=== PATIENT | female | born 1945 | race Caucasian/White ===

== ENCOUNTER 2017-02-22 20:09 | Emergency (ER) | payer MEDICARE ==
--- OUTSIDE RECORDS SUMMARY | 2017-02-22 20:43 | XMS REPORT | Clinical Summary ---
:1945 Author Organization [facility] [place] [address] Care Team Providers Name Role Phone Unavailable Primary Care Provider Unavailable Source Comments This disclosure is being made pursuant to the Good Deal program and maynot contain all information available regarding this patient.[facility] Allergies Active Allergy Reactions Severity Noted Date Comments Clarithromycin Nausea And Vomiting Medium 05/07/2013 Hydrochlorothiazide Other (See Comments) 05/07/2013 Unknown Lisinopril Other (See Comments) 05/07/2013 Unknown Simvastatin Other (See Comments) 05/07/2013 Not sure Current Medications Be aware that medications may not be up to date as of this document. Alwaysverify current medications with the patient. Prescription Sig. Disp. Refills Start Date End Date Status vitamin D, Take 1,000 Active cholecalciferol, 1000 Units by UNITS tablet mouth daily. simvastatin (ZOCOR) Take 10 mg by 10/26/2016 Active 20 MG tablet mouth nightly. lisinopril Take 40 mg by Active (PRINIVIL,ZESTRIL) 40 mouth daily. MG tablet aspirin 81 MG EC Take 81 mg by Active tablet mouth daily. alendronate (FOSAMAX) Take 1 tablet 01/14/2017 Active 10 MG tablet by mouth daily. cyclobenzaprine Take 1 tablet 01/24/2017 Active (FLEXERIL) 10 MG by mouth tablet daily as needed. pantoprazole Take 40 mg by Active (PROTONIX) 40 MG mouth daily. tablet metoprolol succinate Take 1 tablet 0 05/24/2013 02/02/2017 Discontinued (TOPROL-XL) 25 MG 24 by mouth hr tablet nightly. alendronate (FOSAMAX) 03/10/2015 02/02/2017 Discontinued 70 MG tablet aspirin 325 MG tablet Take by 08/14/2012 02/02/2017 Discontinued mouth. potassium chloride SA Take 1 tablet 07/22/2014 02/02/2017 Discontinued (KLOR-CON M10) 10 MEQ by mouth 2 tablet (two) times daily. naproxen (NAPROSYN) Take 1 tablet 10/28/2016 02/02/2017 Discontinued 250 MG tablet by mouth every 6 (six) hours as needed. triamterene-hydrochlo Take 1 tablet 02/02/2017 Discontinued rothiazide by mouth (MAXZIDE-25) 37.5-25 daily. MG per tablet diazepam (VALIUM) 10 Take 1 tablet 1 tablet 0 12/09/2016 02/02/2017 Discontinued MG tablet oral 30 minutes to 1 hour before procedure. Active Problems Problem Noted Date Lumbar stenosis with neurogenic claudication 02/02/2017 Lumbar degenerative disc disease 12/22/2016 Encounters Date Type Specialty Care Team Description 02/04/2017 Orders Only Orthopedic Surgery Alejandra Frye Lumbar stenosis with MELODIE Oliveira neurogenic claudication (Primary Dx) 02/02/2017 Office Visit Orthopedic Surgery Paramjit, Lumbar stenosis with MD Andrew neurogenic claudication (Primary Dx) 12/30/2016 Orders Only Orthopedic Surgery Paramjit, Lumbar degenerative disc MD Andrew disease 12/22/2016 Office Visit Orthopedic Surgery Paramjit, Lumbar degenerative disc disease (Primary Dx); MD Andrew Lumbar stenosis with neurogenic claudication 12/22/2016 Orders Only Orthopedic Surgery Joycelyn Gonzalez Lumbar disc herniation (Primary Dx); MELODIE Oneill Lumbar stenosis 12/10/2016 Telephone Family Medicine Alejandra Frye Procedure MELODIE Oliveira 12/09/2016 Refill Orthopedic Surgery Alejandra Frye RN 12/08/2016 Office Visit Orthopedic Surgery Paramjit, Lumbar degenerative disc MD Andrew disease (Primary Dx) from Last 3 Months Immunizations Name Dates Previously Given Next Due Influenza Split 05/11/2013,03/25/2013 Pneumococcal Polysaccharide-23 03/07/2013 Tdap 03/07/2012 Zoster 2007 Family History Medical History Relation Name Comments Diabetes Mother Relation Name Status Comments Father Mother Sister Alive Sister Alive Social History Tobacco Use Types Packs/Day Years Used Date Never Smoker Smokeless Tobacco: Never Used Alcohol Use Drinks/Week oz/Week Comments Yes "Very seldom." Sex Assigned at Date Recorded Not on file Last Filed Vital Signs Vital Sign Reading Time Taken Blood Pressure 127/80 02/02/2017 10:42 AM CDT Pulse 102 02/02/2017 10:42 AM CDT Temperature 36.5 C (97.7 F) 02/02/2017 10:42 AM CDT Respiratory Rate 16 12/22/2016 9:39 AM CDT Oxygen Saturation 98% 02/02/2017 10:42 AM CDT Inhaled Oxygen Concentration - - Weight 55.7 kg (122 lb 12.8 oz) 12/22/2016 9:39 AM CDT Height 152.4 cm (5') 11/03/2016 10:51 AM CDT Body Mass Index 23.98 12/22/2016 9:39 AM CDT Plan of Treatment Health Maintenance Due Date Last Done Comments Hepatitis C Screening 1965 Colonoscopy 1997 Well Adult Visit 1997 Pneumococcal Low/Medium Risk 65+ (2 of 2 - 03/07/2014 03/07/2013 PCV13) Mammogram 06/10/2016 06/10/2014, 11/20/2012 INFLUENZA IMMUNIZATION (#1) 2017 05/11/2013, 03/25/2013 Tetanus/Pertussis (2 - Td) 03/07/2022 03/07/2012 Zoster Vaccine 60+ Completed 2007 Bone Density Completed 11/22/2014, 11/20/2012 Implants Implanted Type Area Armament Installer Device Expiration Date Model / Identifier Serial / Lot Long Nail Kit Nail Right: Hip 09/07/2014 [id number] / Implanted:Qty: 1 on 05/07/2013 by Leeroy Dickson MD / [id number] Scr Lag Ti Ster 10.5x95mm - [id number] Screw Right: Hip SARAVANAN 2016 [id number] / Implanted:Qty: 1 on 05/07/2013 by Leeroy Dickson MD / [id number] Locking Screw Fully Threaded Screw Right: Hip 07/25/2017 [id number] / Implanted:Qty: 1 on 05/07/2013 by Leeroy Dickson MD / [id number] Results MRI LUMBAR SPINE WO CONTRAST (12/16/2016) Specimen Performing Laboratory EXTERNAL NON UPH RAD - NO INTERFACE from Last 3 Months Insurance Payer Benefit Plan / Subscriber ID Type Phone Address Group [employer] [facility] [id number] Managed [address] [id number] [id number] [place] [address] Home: [id number] [id number] [address] LAURITA HERNANDEZ Personal/Family Self 1945 Home: [address] [facility] [id number] [id number] [facility] [employer] Other Home: [address] [address] Liability [id number] [place] [address]
--- OUTSIDE RECORDS SUMMARY | 2017-02-22 20:44 | XMS REPORT | Encounter Summary ---
:1945 Author Organization [facility] [employer] [place] [address] Care Team Providers Name Role Phone Unavailable Primary Care Provider Unavailable Reason for Referral Referral (Routine) Status Reason Specialty Diagnoses / Referred By Referred To Procedures Contact Contact Authorized Specialty Anesthesiology Diagnoses Lumbar stenosis with neurogenic claudication Paramjit, [facility] Services [facility] Required [address] [place] [phone] [place] [address] Phone: [phone] Phone: Encounter Details Date Type Department Care Team Description 02/04/2017 Orders Only [facility] Melva, Lumbar stenosis with [facility] Alejandra Oliveira RN neurogenic claudication [address] [place] [address] (Primary Dx) [address] [place] [address] [place] [address] [place] [address] Social History Tobacco Use Types Packs/Day Years Used Date Never Smoker Smokeless Tobacco: Never Used Alcohol Use Drinks/Week oz/Week Comments Yes "Very seldom." Sex Assigned at Date Recorded Not on file as of this encounter Plan of Treatment Name Priority Associated Diagnoses Order Schedule Amb Ref to Anesthesiology Routine Lumbar stenosis with Ordered: 02/04/2017 neurogenic claudication as of this encounter Visit Diagnoses Diagnosis Lumbar stenosis with neurogenic claudication - Primary Spinal stenosis, lumbar region, with neurogenic claudication in this encounter
--- OUTSIDE RECORDS SUMMARY | 2017-02-22 20:45 | XMS REPORT | Encounter Summary ---
:1945 Author Organization [employer] [place] [address] Care Team Providers Name Role Phone Unavailable Primary Care Provider Unavailable Reason for Visit Reason Comments Follow-up Encounter Details Date Type Department Care Team Description 02/02/2017 Office Visit [facility] Paramjit, Lumbar stenosis with [facility] MD Andrew neurogenic claudication [address] (Primary Dx) [address] [facility] 3 [place] [address] [place], [place] [phone] Social History Tobacco Use Types Packs/Day Years Used Date Never Smoker Smokeless Tobacco: Never Used Alcohol Use Drinks/Week oz/Week Comments Yes "Very seldom." Sex Assigned at Date Recorded Not on file as of this encounter Last Filed Vital Signs Vital Sign Reading Time Taken Blood Pressure 127/80 02/02/2017 10:42 AM CDT Pulse 102 02/02/2017 10:42 AM CDT Temperature 36.5 C (97.7 F) 02/02/2017 10:42 AM CDT Respiratory Rate - - Oxygen Saturation 98% 02/02/2017 10:42 AM CDT Inhaled Oxygen Concentration - - Weight - - Height - - Body Mass Index - - in this encounter Progress Notes Andrew Yusuf MD - 02/02/2017 10:29 AM CDTFormatting of this note may be different from the original. Subjective: Patient ID: Laurita Hernandez is a 71 y.o. female. Chief Complaint: HPI Comments: Ms. Hernandez presents to the clinic today for a follow-up from her Lumbar TATE. She reports that she experienced some relief the first 2 weeks after the procedure, but has since had some symptoms re-develop. She reports that she has beenexperiencing pain in both of her legs that starts in her BILATERAL hips and radiates down her entire leg. She reports that today she can tolerate thepain, but yesterday she had to lay in bed for the majority of the day due to the pain being so severe.She rates her pain level yesterday, Tuesday , 02/01/17, as 9/10, with 10 being the most severe. Social History Occupational History Not on file. Social History Main Topics Smoking status: Never Smoker Smokeless tobacco: Never Used Alcohol Use: Yes Comment: "Very seldom." Drug Use: No Sexual Activity: Not on file Review of Systems Constitutional: Negative. HENT: Negative. Eyes: Negative. Respiratory: Negative. Cardiovascular: Negative. Gastrointestinal: Negative. Endocrine: Negative. Genitourinary: Negative. Musculoskeletal: BILATERAL leg pain Skin: Negative. Allergic/Immunologic: Negative. Neurological: Negative. Hematological: Negative. Psychiatric/Behavioral: Negative. Objective: Back Exam Sensation: Normal. Gait: Normal. SLR Right: Negative Left: Negative Muscle Strength Normal back strength Tests Toe Walk: Normal Heel Walk: Normal Assessment: 1. Lumbar stenosis with neurogenic claudication Plan: LUMBAR TATE #2in this encounter Plan of Treatment Not on fileas of this encounter Visit Diagnoses Diagnosis Lumbar stenosis with neurogenic claudication - Primary Spinal stenosis, lumbar region, with neurogenic claudication in this encounter
--- OUTSIDE RECORDS SUMMARY | 2017-02-22 20:45 | XMS REPORT | Encounter Summary ---
:1945 Author Organization [employer] [place] [address] Care Team Providers Name Role Phone Unavailable Primary Care Provider Unavailable Reason for Referral MRI/CAT Scan (Routine) Status Reason Specialty Diagnoses / Procedures Referred By Referred To Contact Contact Authorized Other Diagnoses Lumbar degenerative disc disease Paramjit, Procedures MRI LUMBAR SPINE WO CONTRAST MD Andrew [address] [address] Encounter Details Date Type Department Care Team Description 12/30/2016 Orders Only [facility] Paramjit, Lumbar degenerative [facility] MD Andrew disc disease [address] [address] [place], [place] [phone] Social History Tobacco Use Types Packs/Day Years Used Date Never Smoker Smokeless Tobacco: Never Used Alcohol Use Drinks/Week oz/Week Comments Yes "Very seldom." Sex Assigned at Date Recorded Not on file as of this encounter Plan of Treatment Not on fileas of this encounter Results MRI LUMBAR SPINE WO CONTRAST (12/16/2016) Specimen Performing Laboratory EXTERNAL NON UPH RAD - NO INTERFACE in this encounter Visit Diagnoses Diagnosis Lumbar degenerative disc disease Degeneration of lumbar or lumbosacral intervertebral disc in this encounter
--- OUTSIDE RECORDS SUMMARY | 2017-02-22 20:45 | XMS REPORT | Encounter Summary ---
:1945 Author Organization [employer] [place] [address] Care Team Providers Name Role Phone Unavailable Primary Care Provider Unavailable Reason for Visit Reason Comments Procedure Encounter Details Date Type Department Care Team Description 12/10/2016 Telephone [facility] Alejandra Baires RN Procedure [facility] [address] [place] [address], [address] [facility] 3 [place] [address] [place], [place] [phone] Social History Tobacco Use Types Packs/Day Years Used Date Never Smoker Smokeless Tobacco: Never Used Alcohol Use Drinks/Week oz/Week Comments Yes "Very seldom." Sex Assigned at Date Recorded Not on file as of this encounter Plan of Treatment Not on fileas of this encounter Visit Diagnoses Not on filein this encounter
--- OUTSIDE RECORDS SUMMARY | 2017-02-22 20:45 | XMS REPORT | Encounter Summary ---
:1945 Author Organization [employer] [place] [address] Care Team Providers Name Role Phone Unavailable Primary Care Provider Unavailable Reason for Referral Surgical (Routine) Status Reason Specialty Diagnoses / Referred By Referred To Procedures Contact Contact Authorized Diagnoses Lumbar disc herniation Lumbar stenosis Paramjit, Procedures Lumbar epidural steroid injection MD Andrew [address] [address] Encounter Details Date Type Department Care Team Description 12/22/2016 Orders Only [facility] Joycelyn Gonzalez Lumbar disc herniation (Primary Dx); [facility] Mai, RN Lumbar stenosis [address] [address] [place] [address] Social History Tobacco Use Types Packs/Day Years Used Date Never Smoker Smokeless Tobacco: Never Used Alcohol Use Drinks/Week oz/Week Comments Yes "Very seldom." Sex Assigned at Date Recorded Not on file as of this encounter Plan of Treatment Name Priority Associated Diagnoses Order Schedule Lumbar epidural steroid Routine Lumbar disc herniation 1 Occurrences starting injection Lumbar stenosis 12/22/2016 until 12/22/2017 as of this encounter Visit Diagnoses Diagnosis Lumbar disc herniation - Primary Displacement of lumbar intervertebral disc without myelopathy Lumbar stenosis Spinal stenosis, lumbar region, without neurogenic claudication in this encounter
--- OUTSIDE RECORDS SUMMARY | 2017-02-22 20:45 | XMS REPORT | Encounter Summary ---
:1945 Author Organization [employer] [place] [address] Care Team Providers Name Role Phone Unavailable Primary Care Provider Unavailable Reason for Referral MRI/CAT Scan (Routine) Status Reason Specialty Diagnoses / Procedures Referred By Referred To Contact Contact Authorized Other Diagnoses Lumbar degenerative disc disease Paramjit, Procedures MRI LUMBAR SPINE WO CONTRAST MD Andrew [address] [address] Reason for Visit Reason Comments Follow-up Encounter Details Date Type Department Care Team Description 12/08/2016 Office Visit [facility] Paramjit, Lumbar degenerative [facility] MD Andrew disc disease (Primary 1603 [facility], [address]) [address] [address] [place], [place] [phone] Social History Tobacco Use Types Packs/Day Years Used Date Never Smoker Smokeless Tobacco: Never Used Alcohol Use Drinks/Week oz/Week Comments Yes "Very seldom." Sex Assigned at Date Recorded Not on file as of this encounter Last Filed Vital Signs Vital Sign Reading Time Taken Blood Pressure 112/74 12/08/2016 10:07 AM CDT Pulse 67 12/08/2016 10:07 AM CDT Temperature 36.5 C (97.7 F) 12/08/2016 10:07 AM CDT Respiratory Rate - - Oxygen Saturation 98% 12/08/2016 10:07 AM CDT Inhaled Oxygen Concentration - - Weight - - Height - - Body Mass Index - - in this encounter Progress Notes Andrew Yusuf MD - 12/08/2016 9:57 AM CDTFormatting of this note may be different from the original. Subjective: Patient ID: Laurita Hernandez is a 71 y.o. female. Chief Complaint: HPI Comments: Ms. Hernandez presents to the clinic today for a follow-up on her low back pain. She reports that the pain starts in her lower back and radiates into her BILATERAL thighs, knees, and lowerlegs. She reports that she went to in [facility] over the past month, but that it did nothing for her pain. She reports that she has been released from PT. She reports that she has been continuing HEP and using heat on her back. She reports that the pain radiating into her legs has woken her up at night. She rates her current pain level as 4/ 10, with 10 being the most severe. She reports thather pain can reach 10/10. She presents today using a cane. Social History Occupational History Not on file. Social History Main Topics Smoking status: Never Smoker Smokeless tobacco: Never Used Alcohol Use: Yes Comment: "Very seldom." Drug Use: No Sexual Activity: Not on file Review of Systems Constitutional: Negative. HENT: Negative. Eyes: Negative. Respiratory: Negative. Cardiovascular: Negative. Gastrointestinal: Negative. Endocrine: Negative. Genitourinary: Negative. Musculoskeletal: Low back pain radiating into BILATERAL legs Skin: Negative. Allergic/Immunologic: Negative. Neurological: Negative. Hematological: Negative. Psychiatric/Behavioral: Negative. Objective: Left Hip Exam Gait: n/t. Tenderness None Range of Motion Extension: Normal Flexion: Normal Internal Rotation: Normal External Rotation: Normal Abduction: Normal Adduction: N/t Muscle Strength Abduction: N/t Adduction: N/t Flexion: N/t Tests Frank: Negative Kyree: N/t Right Hip Exam Gait: n/t. Tenderness None Range of Motion Extension: Normal Flexion: Normal Internal Rotation: N/t External Rotation: n/t Abduction: Normal Adduction: N/t Muscle Strength Abduction: N/t Adduction: N/t Flexion: N/t Tests Frank: Negative Kyree: N/t Back Exam Sensation: Decreased. Gait: Normal. Tenderness None SLR Right: Positive Left: Positive Tests Toe Walk: Normal Heel Walk: Normal Reflexes Patellar: Normal Achilles: Normal Comments: SENSORY DIMINISHED R S1 Assessment: 1. Lumbar degenerative disc disease Plan: LUMBAR MRI in this encounter Plan of Treatment Not on fileas of this encounter Results MRI LUMBAR SPINE WO CONTRAST (12/16/2016) Specimen Performing Laboratory EXTERNAL NON UPH RAD - NO INTERFACE in this encounter Visit Diagnoses Diagnosis Lumbar degenerative disc disease - Primary Degeneration of lumbar or lumbosacral intervertebral disc in this encounter
--- OUTSIDE RECORDS SUMMARY | 2017-02-22 20:45 | XMS REPORT | Encounter Summary ---
:1945 Author Organization [facility] [place] [address] Care Team Providers Name Role Phone Unavailable Primary Care Provider Unavailable Reason for Visit Reason Comments Medication Refill Encounter Details Date Type Department Care Team Description 12/09/2016 Refill [facility] Alejandra Baires, RN Orthopedics [address] [place] [address], [address] [address] [place], [place] [phone] Social History Tobacco Use Types Packs/Day Years Used Date Never Smoker Smokeless Tobacco: Never Used Alcohol Use Drinks/Week oz/Week Comments Yes "Very seldom." Sex Assigned at Date Recorded Not on file as of this encounter Plan of Treatment Not on fileas of this encounter Visit Diagnoses Not on filein this encounter
--- OUTSIDE RECORDS SUMMARY | 2017-02-22 20:45 | XMS REPORT | Encounter Summary ---
:1945 Author Organization [employer] [place] [address] Care Team Providers Name Role Phone Unavailable Primary Care Provider Unavailable Reason for Referral Referral (Routine) Status Reason Specialty Diagnoses / Referred By Referred To Procedures Contact Contact Authorization Not Specialty Physical Diagnoses Lumbar degenerative disc disease CURT Yusuf Needed Services Therapy EMMY Morales MD [address] [address] [facility] [address] [place] [address] Phone: Fax: Reason for Visit Reason Comments Hip Pain RIGHT Back Pain Referral (Routine) Status Reason Specialty Diagnoses / Referred By Referred To Procedures Contact Contact Authorized Specialty Orthopedic Diagnoses Right thigh pain DDD (degenerative disc disease), lumbar Dar Nelson, Paramjit, Services Surgery MD Morales, [place] [address] [address] CURTIS [address] [address] [address] Phone: [place], [place] [phone] Fax: Encounter Details Date Type Department Care Team Description 11/03/2016 Office Visit [facility] Paramjit Lumbar degenerative [facility] MD Andrew disc disease (Primary [address] [facility], [address] [place] [address]) [address] [place] [address] [place], [place] [phone] Social History Tobacco Use Types Packs/Day Years Used Date Never Smoker Smokeless Tobacco: Never Used Alcohol Use Drinks/Week oz/Week Comments Yes "Very seldom." Sex Assigned at Date Recorded Not on file as of this encounter Last Filed Vital Signs Vital Sign Reading Time Taken Blood Pressure 118/75 11/03/2016 10:51 AM CDT Pulse 101 11/03/2016 10:51 AM CDT Temperature 36.2 C (97.2 F) 11/03/2016 10:51 AM CDT Respiratory Rate - - Oxygen Saturation 96% 11/03/2016 10:51 AM CDT Inhaled Oxygen Concentration - - Weight 55.7 kg (122 lb 12.8 oz) 11/03/2016 10:51 AM CDT Height 152.4 cm (5') 11/03/2016 10:51 AM CDT Body Mass Index 23.98 11/03/2016 10:51 AM CDT in this encounter Progress Notes Andrew Yusuf MD - 11/03/2016 10:51 AM CDTFormatting of this note may be different from the original. Subjective: Patient ID: Laurita Hernandez is a 71 y.o. female. HPI Comments: Patient presents to the clinic today due to RIGHT hip and leg pain. She reports that the pain radiates from her RIGHT lower back and radiates into her RIGHT lower extremity. She reportsthat the pain primarily occurs when she gets up from sitting down. She presents today using a cane. She reports that she fractured her RIGHT femur in 04/2013 and had surgery to repair it. She reportsthat her RIGHT hip and leg pain started within the past month, and that she has x-rays of her femur todetermine whether or not it was due to her surgical procedure. She reports that she was told thatthe hardware in her leg was fine, but that the pain may be originating from her lower back . She reports that she was told that she had bulging discs approximately 20 years ago. She reports that shereceived a cortisone injection in her RIGHT hip around 04/2015, which "didn't last over a month." Patient's problem list, medications, allergies, past medical, surgical, social and family histories were reviewed and updated as appropriate. Review of Systems Constitutional: Negative. HENT: Negative. Eyes: Negative. Respiratory: Negative. Cardiovascular: Negative. Gastrointestinal: Negative. Endocrine: Negative. Genitourinary: Negative. Musculoskeletal: RIGHT hip and leg pain radiating from the lower back, numbness and tingling in the toes Skin: Negative. Allergic/Immunologic: Negative. Neurological: Negative. Hematological: Negative. Psychiatric/Behavioral: Negative. Objective: BP 118/75 mmHg | Pulse 101 | Temp(Src) 36.2 C (97.2 F) (Tympanic) | Ht 1.524 m (5') | Wt 55.702 kg (122 lb 12.8 oz) | BMI 23.98 kg/m2 | SpO2 96% Body mass index is 23.98 kg/(m^2). Physical Exam Lumbar exam reveals negative straight leg raise, symmetrical knee and ankle reflexes. Normal peripheral sensory exam. Right hip has pain-free range of motion. She does have a positive Kyree and positive femoral stretch on the right. x-rays: Right hip to knee including femur: There is a long intramedullary nail with proximal and distal locking screws with a medial proximal third right femur fracture. There is a right total kneereplacement without complication. X-ray: Lumbar: March degenerative changes throughout the upper and mid lumbar spine including disc space narrowing bridging syndesmophytes L2-3-4. Multiple endplate sclerosis. Assessment/Orders: Diagnoses and all orders for this visit: Lumbar degenerative disc disease - Amb Ref to Physical Therapy Plan: PT in this encounter Plan of Treatment Name Priority Associated Diagnoses Order Schedule Amb Ref to Physical Routine Lumbar degenerative disc Ordered: 11/03/2016 Therapy disease as of this encounter Visit Diagnoses Diagnosis Lumbar degenerative disc disease - Primary Degeneration of lumbar or lumbosacral intervertebral disc in this encounter
--- OUTSIDE RECORDS SUMMARY | 2017-02-22 20:45 | XMS REPORT | Encounter Summary ---
:1945 Author Organization [employer] Address [place] [address] Care Team Providers Name Role Phone Unavailable Primary Care Provider Unavailable Reason for Visit Reason Comments Follow-up to review Lumbar MRI for back pain Encounter Details Date Type Department Care Team Description 12/22/2016 Office Visit [facility] Paramjit Lumbar degenerative disc disease (Primary Dx); [facility] MD Andrew Lumbar stenosis with neurogenic claudication [address] [facility] 3 [place] [address] [place], [place] [phone] Social History Tobacco Use Types Packs/Day Years Used Date Never Smoker Smokeless Tobacco: Never Used Alcohol Use Drinks/Week oz/Week Comments Yes "Very seldom." Sex Assigned at Date Recorded Not on file as of this encounter Last Filed Vital Signs Vital Sign Reading Time Taken Blood Pressure 129/81 12/22/2016 9:39 AM CDT Pulse 61 12/22/2016 9:39 AM CDT Temperature 36.9 C (98.4 F) 12/22/2016 9:39 AM CDT Respiratory Rate 16 12/22/2016 9:39 AM CDT Oxygen Saturation 100% 12/22/2016 9:39 AM CDT Inhaled Oxygen Concentration - - Weight 55.7 kg (122 lb 12.8 oz) 12/22/2016 9:39 AM CDT Height - - Body Mass Index 23.98 12/22/2016 9:39 AM CDT in this encounter Progress Notes Andrew Yusuf MD - 12/22/2016 9:29 AM CDTFormatting of this note may be different from the original. Subjective: Patient ID: Laurita Hernandez is a 71 y.o. female. Chief Complaint: HPI Follow up to review Lumbar MRI results. Patient has had a lumbar MRI done on and states that she is having a lot of pain in the lower back into the LEFT hip and down the back of the LEFT knee, she states that she is having RIGHT knee pain.Patient is rating pain a 7 on pain scale 0-10. KB HAS [facility] AND PT (D/C'D) half way thru due to failure to improve. 1 BLOCK WALKING TOLERANCE W/ CANE. FAILED NAPROSYN ULTRAM Social History Occupational History Not on file. Social History Main Topics Smoking status: Never Smoker Smokeless tobacco: Never Used Alcohol Use: Yes Comment: "Very seldom." Drug Use: No Sexual Activity: Not on file Review of Systems Constitutional: Negative. Respiratory: Negative. Cardiovascular: Negative. Musculoskeletal: Positive for back pain (;umbar pain) and arthralgias. Psychiatric/Behavioral: Negative. Objective: Back Exam Sensation: Normal. Gait: Antalgic. Tenderness None Range of Motion Flexion: Abnormal Extension: Abnormal Lateral Bend Left: Lateral Bend Right: Rotation Right: Rotation Left: SLR Right: Positive Left: Positive Muscle Strength Normal back strength Tests Toe Walk: Normal Heel Walk: Normal Reflexes Patellar: Hyporeflexic Achilles: Hyporeflexic Lumbar MRI: Multiple level degenerative disc disease most pronounced at L3-4 with right sided disc protrusion Assessment: 1. Lumbar degenerative disc disease 2. Lumbar stenosis with neurogenic claudication Plan: rec tulio lumbar in this encounter Plan of Treatment Not on fileas of this encounter Visit Diagnoses Diagnosis Lumbar degenerative disc disease - Primary Degeneration of lumbar or lumbosacral intervertebral disc Lumbar stenosis with neurogenic claudication Spinal stenosis, lumbar region, with neurogenic claudication in this encounter
--- OUTSIDE RECORDS SUMMARY | 2017-02-22 20:46 | XMS REPORT | Encounter Summary ---
:1945 Author Organization [employer] [place] [address] Care Team Providers Name Role Phone Unavailable Primary Care Provider Unavailable Reason for Referral Referral (Routine) Status Reason Specialty Diagnoses / Referred By Referred To Procedures Contact Contact Authorized Specialty Orthopedic Diagnoses Right thigh pain DDD (degenerative disc disease), lumbar Dar Nelson, Paramjit, Services Surgery MD Morales, [facility] [address] [facility] 160[address] [facility] [address] [address] Phone: [place], [place] [phone] Fax: Encounter Details Date Type Department Care Team Description 11/02/2016 Orders Only [facility] Mattie Zepeda, Right thigh pain (Primary Dx); [facility] RN DDD (degenerative disc disease), lumbar [address] [place] [address] [place] [address] [phone] Social History Tobacco Use Types Packs/Day Years Used Date Never Smoker Smokeless Tobacco: Never Used Alcohol Use Drinks/Week oz/Week Comments Yes 2 Glasses of wine 1.2 Sex Assigned at Date Recorded Not on file as of this encounter Plan of Treatment Name Priority Associated Diagnoses Order Schedule Amb Ref to Orthopedic Routine Right thigh pain Ordered: 11/05/2016 Surgery DDD (degenerative disc disease), lumbar as of this encounter Visit Diagnoses Diagnosis Right thigh pain - Primary Pain in limb DDD (degenerative disc disease), lumbar Degeneration of lumbar or lumbosacral intervertebral disc in this encounter
--- OUTSIDE RECORDS SUMMARY | 2017-02-22 20:46 | XMS REPORT | Encounter Summary ---
:1945 Author Organization [employer] [place] [address] Care Team Providers Name Role Phone Unavailable Primary Care Provider Unavailable Encounter Details Date Type Department Care Team Description 11/02/2016 Abstract [facility] Alejandra Baires, geophysical prospecting surveyor[address], [address] [facility] 3 [place] [address] [place] [address] [phone] Social History Tobacco Use Types Packs/Day Years Used Date Never Smoker Smokeless Tobacco: Never Used Alcohol Use Drinks/Week oz/Week Comments Yes 2 Glasses of wine 1.2 Sex Assigned at Date Recorded Not on file as of this encounter Plan of Treatment Not on fileas of this encounter Visit Diagnoses Not on filein this encounter
[2017-02-22] MEDS ORDERED: NORMAL SALINE 1,000 ML IV ONE (20:48)
--- NOTE | 2017-02-22 20:53 | ERNOTE ---
Head Injury HPI - General Injury to: other Time Seen by Provider: 02/22/17 20:37 Source: patient, family Exam Limitations: clinical condition - Immun/Allergies/Home Medications Immunization: IMMUNIZATION HX Immunizations Up to Date Yes History of Influenza Vaccine No Hx Pneumococcal Vaccination No Allergies/Adverse Reactions: Allergies Allergy/AdvReac Type Severity Reaction Status Date / Time No Known Allergies Allergy Verified 02/22/17 20:24 Home Medications: HOME MEDICATIONS Alendronate Sodium 11/12/16 [Last Taken Unknown] Aspirin 11/12/16 [Last Taken Unknown] Metoprolol ER-Hctz 100-12.5 mg 11/12/16 [Last Taken Unknown] Pantoprazole Sodium 11/12/16 [Last Taken Unknown] Simvastatin 11/12/16 [Last Taken Unknown] Vitamin D 11/12/16 [Last Taken Unknown] Lisinopril 02/22/17 [Last Taken Unknown] Orphenadrine Citrate [Norflex] 100 mg PO Q12H #20 tablet.sa 02/23/17 [Last Taken Unknown] - History of Present Illness Narrative: Pt has been sick for a few days. Yesterday her neck began to get stiff and she is unable to move it this evening. Occurred: other Severity: moderate, severe Associated Symptoms: Reports: cough, fever/chills, headaches Review of Systems - Review of Systems Constitutional: Present: recent illness, fatigue, malaise EYE: Present: no symptoms reported ENT: Absent: ear pain, nose congestion Respiratory: Present: cough Cardiology: Absent: chest pain Gastrointestinal/Abdominal: Present: eating less, drinking less Genitourinary: Present: no symptoms reported Musculoskeletal: Absent: back pain Skin: Absent: rash Neurological: Present: headache Endocrine: Present: no symptoms reported Hematologic/Lymphatic: Present: no symptoms reported Psych: Present: no symptoms reported - Patient's Past Medical History Patient History - Medical: Osteoporosis Patient History - Cardiac/Respiratory: Hypertension, Hyperlipidemia Patient History - Cancer: No Hx of Cancer Patient History - Surgical Procedures: Total Knee Replacement, Other Patient History - Other: None - Social History Living Situations: home Psych History: No pertinent hx Smoking Status: Never smoker - Immunizations Immunizations Up to Date: Yes Hx Pneumococcal Vaccination: No History of Influenza Vaccine: No Physical Exam - Physical Exam General Appearance: Present: wd/wn, mild distress, moderate distress, lethargic Head Exam: Present: no evidence of injury, no tenderness w palpation Eye Exam: Normal inspection: bilateral, PERRL: bilateral Ears, Nose, Throat: Present: normal ENT inspection, normal pharynx Neck: Present: other - nuchal rigidity/ tenderness with any movement Respiratory: Present: no respiratory distress, normal breath sounds, no accessory muscle use, lungs clear Cardiovascular/Chest: Present: regular rate, rhythm, no murmur, normal peripheral pulses Gastrointestinal/Abdominal: Present: normal bowel sounds, nontender, nondistended, soft Back Exam: Present: no vertebral tenderness Extremity Exam: Present: normal inspection, normal range of motion, no edema Neurological Exam: Present: alert, oriented, no motor/sensory deficits Skin Exam: Present: normal color, warm/dry Lymphatic Exam: Present: no adenopathy ED Progress - Results and Orders Patient's Lab Results:: I have reviewed the patient's lab results. Results and Orders: Laboratory Tests 02/22/17 02/22/17 02/22/17 20:48 21:06 21:06 WBC 20.1 H Hgb 14.1 Hct 40.9 Neutrophils % 86.8 H Sodium 140 Potassium 3.8 Chloride 102 Carbon Dioxide 29.6 BUN 10 Creatinine 0.78 Random Glucose 162 H Lactic Acid, Venous 1.8 Calcium 8.4 Total Bilirubin 0.8 AST 25 ALT 16 L Alkaline Phosphatase 90 Total Protein 7.7 Albumin 3.3 L Procalcitonin 02/22/17 21:06 WBC Hgb Hct Neutrophils % Sodium Potassium Chloride Carbon Dioxide BUN Creatinine Random Glucose Lactic Acid, Venous Calcium Total Bilirubin AST ALT Alkaline Phosphatase Total Protein Albumin Procalcitonin Less than 0.05 L Laboratory Tests 02/22/17 02/22/17 23:00 23:00 CSF Appearance Clear CSF Color Colorless CSF WBC 0 CSF RBC 1 CSF Lymphocytes 0 CSF Glucose 78 H CSF Total Protein 78.8 H - Vital Signs Patient's Vital Signs:: I have reviewed the patient's vital signs. Vital Signs: Vital Signs 02/22/17 20:19 Temperature 36.9 C Pulse Rate 118 H Respiratory 17 Rate Blood Pressure 127/85 O2 Sat by Pulse 98 Oximetry - X-Ray X-Ray #1 X-Ray: chest Interpretation: Interp. by me X-ray Comments: No infiltrate or effusion, heart size normal. Osseous structures intact - CT/Ultrasound CT/Ultrasound Narrative: CT: head Findings: There is scattered periventricular and subcortical white matter hypodensities consistent with chronic microvascular ischemic white matter disease. There is diffuse brain atrophy with associated increasing size of the CSF containing spaces. There is no acute loss of babcock-white differentiation appreciated. There is no mass effect or midline shift. No intra-axial or extra axial blood products identified. The visualized paranasal sinuses and mastoid air cells are clear. The skull base and calvarium are intact. IMPRESSION: NO ACUTE INTRACRANIAL ABNORMALITY IDENTIFIED. Electronically signed by Ugo Nguyen D.O.. - Progress/Reassessment Chief Complaint: Neck Pain/Injury Progress Note-Subjective: 02/22/17 22:12 Anesthesia called to do LP. Pt complains of pain. given zofran 4mg and morphine 2 mg IV. Departure Clinical Impression: Muscle spasms of neck - Departure Disposition: Home Follow Up Needed Condition: Good Instructions: Muscle Cramps and Spasms, [id number] Additional Instructions: See your regular doctor if not improving in 1-2 days. Stop the cyclobenzaprine and take the new prescription Referrals: Yvonne Ballard, DO [Primary Care Provider] - Prescriptions: Orphenadrine Citrate [Norflex] 100 mg PO Q12H #20 tablet.sa
[2017-02-22 21:05] LABS: Hematocrit 40.9 % (37.0-47.0); Hemoglobin 14.1 gm/dL (12.5-16.0); Mean Cell Volume 89.9 fl (78-100); Mean Corpuscular Hgb Conc 34.5 g/dl (32-36); Mean Platelet Volume 10.2 fl (6.0-9.5); Neutrophil # 17.4 K/mm3 (1.3-6.0); Neutrophil % 86.8 % (42-75.0); Platelet Count 254 K/mm3 (150-450); Red Blood Count 4.55 M/mm3 (4.2-5.4); Red Cell Distribution Width 13.8 % (11.5-14.0); White Blood Count 20.1 K/mm3 (4.0-10.5)
[2017-02-22 21:31] LABS: Albumin * 3.3 gm/dl (3.4-5.0); Anion Gap 12.2 mmol/L (6.8-13.8); BUN/Creatinine Ratio 12.8 (9.0-21.6); Bilirubin, Total 0.8 mg/dL (0.0-1.1); Ca. Corrected For Albumin 8.6 mg/dL (8.4-10.2); Calcium * 8.4 mg/dL (7.9-10.9); Carbon Dioxide 29.6 mmol/L (24-32.6); Potassium 3.8 mmol/L (3.4-4.6); Total Protein 7.7 gm/dL (6.2-8.2)
[2017-02-22 21:45] LABS: Urine Bilirubin 1 mg/dl (NEGATIVE); Urine Blood 250 /ul (NEGATIVE); Urine Ketone 50 mg/dL (NEGATIVE); Urine Nitrite Negative (NEGATIVE); Urine Protein 30 mg/dL (NEGATIVE); Urine Specific Gravity 1.025 SP.GR. (1.005-1.010); Urine pH 6.5 pH (5.0-7.0)
[2017-02-22 21:56] LABS: Urine Appearance Clear; Urine Color Yellow; Urine WBC None Seen /hpf (0-5)
[2017-02-22 21:57] LABS: Urine Bacteria 1+; Urine Mucus Moderate - 2+
[2017-02-22] MEDS ORDERED: ONDANSETRON HCL/PF 2 MG/ML VIAL IV ONE (22:11)
[2017-02-22] MEDS ORDERED: ONDANSETRON HCL/PF 2 MG/ML VIAL ONE (22:12)
[2017-02-22] MEDS ORDERED: MORPHINE SULFATE 2 MG/ML DISP.SYRIN IV ONE (22:12)
[2017-02-22] MEDS ORDERED: MORPHINE SULFATE 2 MG/ML DISP.SYRIN ONE (22:12)
--- NOTE | 2017-02-22 23:04 | OR ---
Anesthesia Procedure Note - Anesthesia Procedure Note Date of Service: 02/22/17 Narrative: Vital Signs - Last Taken Temp 38.2 C H 02/22/17 22:19 Pulse 103 H 02/22/17 22:19 Resp 18 02/22/17 22:19 BP 163/95 02/22/17 22:19 Pulse Ox 100 02/22/17 22:19 O2 Oxygen Delivery Method Room Air 02/22/17 23:02 ANESTHESIA PROCEDURE NOTE Date of Procedure: 02/22/2017. Time of procedure: 2244. Performed by: Geovanni Mcclellan CRNA Loss Prevention Officer: None. Preprocedure diagnosis: Headache, neck pain. Post procedure diagnosis: Same. Procedure: Lumbar Puncture. Indications: This 72-year-old female who is been experiencing headache neck pain and fever. Findings: Opening pressure = 16 mmHg Clossing pressure = 15.5 mmHg. Details of the procedure: After informed consent was obtained the patient was placed in the left lateral decubitus position. Betadine swabs 3 was applied to the patients back. The patient was then draped in a sterile fasion. Lidocaine 1% was infiltrated to the skin and subcutaneous tissues at the intended target site. The subarachnoid space was identified at the level of the L5-S1 interspace using a 22-gauge quickie spinal needle. Free flow of CSF was noted. Pressure measurements were obtained.. Four specimens were drawn and sent to lab. The spinal needle was removed intact. A Band-Aid was applied to the patient's back. EBL: Minimal. Fluids: N/A. Specimen: N/A. Post procedure condition: The patient tolerated the procedure well. No complications were noted. Thank you for this consultation. Geovanni Mcclellan CRNA
[2017-02-22 23:59] LABS: CSF Appearance Clear (CLEAR); CSF Color Colorless (COLORLESS)
[2017-02-23 00:07] LABS: CSF WBC 0 /uL (0-10)
[2017-02-23 00:09] LABS: CSF RBC 1 /uL (0-10)
[2017-02-23 00:15] LABS: CSF Lymphocytes 0 % (0-100)
[2017-02-23] MEDS ORDERED: ORPHENADRINE CITRATE 30 MG/ML VIAL IV ONE (00:33)
[2017-02-23] MEDS ORDERED: ORPHENADRINE CITRATE 30 MG/ML VIAL ONE (00:34)
[2017-02-23 01:00] VITALS: BP 142/86
== END 2017-02-23 00:59 | disposition home or self-care (01) ==
LOC: ER 20:09
PROC: 009U3ZZ Drainage of Spinal Canal, Percutaneous Approach (ICD-10-PCS; principal; 2017-02-22)
DX: M62.838 Other muscle spasm (principal)
CPT/HCPCS: 36415; 62270; 70450; 71020; 80053; 81001; 82945; 83605; 84145; 84157; 85025; 87070; 87205; 89051; 94762; 96374; 96375; 99284; J2405

== ENCOUNTER 2017-02-23 11:35 | Inpatient (IN) | payer MEDICARE ==
[2017-02-23] MEDS ORDERED: MORPHINE SULFATE 2 MG/ML DISP.SYRIN IV ONE (12:05)
[2017-02-23] MEDS ORDERED: NORMAL SALINE 1,000 ML IV ONE (12:05)
[2017-02-23] MEDS ORDERED: MORPHINE SULFATE 2 MG/ML DISP.SYRIN ONE (12:12)
--- NOTE | 2017-02-23 12:12 | ERNOTE ---
Medical Problem HPI - General Chief Complaint: Upper Extremity Injury/Problem Time Seen by Provider: 02/23/17 11:56 Source: patient, family Exam Limitations: no limitations - Immun/Allergies/Home Medications Immunizations: IMMUNIZATION HX Immunizations Up to Date Yes History of Influenza Vaccine Yes Hx Pneumococcal Vaccination Yes Allergies/Adverse Reactions: Allergies No Known Allergies Allergy (Verified 02/23/17 11:50) Home Medications: HOME MEDICATIONS Alendronate Sodium 11/12/16 [Last Taken Unknown] Aspirin 11/12/16 [Last Taken Unknown] Metoprolol ER-Hctz 100-12.5 mg 11/12/16 [Last Taken Unknown] Pantoprazole Sodium 11/12/16 [Last Taken Unknown] Simvastatin 11/12/16 [Last Taken Unknown] Vitamin D 11/12/16 [Last Taken Unknown] Lisinopril 02/22/17 [Last Taken Unknown] Orphenadrine Citrate [Norflex] 100 mg PO Q12H #20 tablet.sa 02/23/17 [Last Taken Unknown] - History of Present History Narrative: Patient started with neck pain three days ago. she vomited only once but has had very little food or fluid intake since.She also noticed pain in the right wrist, denies any injury or any other joint issues. She was seen in the ER last night, had head CT and lumbar puncture, WBC were elevated, but LA and procalcitonin and CSF studies wnl. She followed up with her PCP today and was send back to the ER for concerns about her right wrist Review of Systems - Review of Systems Constitutional: Present: recent illness, chills. Absent: fever ENT: Absent: nose congestion, sore throat Respiratory: Present: shortness of breath. Absent: cough Cardiology: Absent: chest pain Gastrointestinal/Abdominal: Present: See HPI. Absent: vomiting, diarrhea, abdominal pain Genitourinary: Present: no symptoms reported Musculoskeletal: Present: See HPI, neck pain - with movement only, joint pain - Patient's Past Medical History Patient History - Medical: Osteoporosis Patient History - Cardiac/Respiratory: Hypertension, Hyperlipidemia Patient History - Cancer: No Hx of Cancer Patient History - Surgical Procedures: Total Knee Replacement, Other Patient History - Other: None LMP (females 10-50): Menopausal - Social History Living Situations: home Abuse History: No History of abuse Psych History: No pertinent hx Smoking Status: Never smoker Alcohol Use: occasionally Drug Use: none - Immunizations Immunizations Up to Date: Yes Hx Pneumococcal Vaccination: Yes History of Influenza Vaccine: Yes Physical Exam - Physical Exam General Appearance: Present: wd/wn, alert, no apparent distress Head Exam: Present: normal inspection Ears, Nose, Throat: Present: dry mucous membranes Neck: Present: tender lateral, tender posterior midline, other - no pain at rest but with ROM Respiratory: Present: no respiratory distress, normal breath sounds, no accessory muscle use, lungs clear Cardiovascular/Chest: Present: regular rate, rhythm, no murmur Gastrointestinal/Abdominal: Present: normal bowel sounds, nontender, nondistended, soft Extremity Exam: Present: normal except - - right wrist area of redness and swelling from dorsum of hand extending to forearm, smaller area over palmar surface of wrist, small scab (bite) on dorsum of hand (marked with marker) Neurological Exam: Present: alert, oriented, normal mood/affect, no motor/ sensory deficits Skin Exam: Present: normal color, warm/dry, other - no lymphangitis ED Progress - Results and Orders Patient's Lab Results:: I have reviewed the patient's lab results. Results and Orders: reviewed labs from last visit, WBC improved, LA and procalcitonin do not support systemic infection - Vital Signs Patient's Vital Signs:: I have reviewed the patient's vital signs. Vital Signs: Vital Signs 02/23/17 11:44 Temperature 37.6 C H Pulse Rate 113 H Respiratory 16 Rate Blood Pressure 145/85 O2 Sat by Pulse 94 Oximetry - EKG EKG: NSR - sinustachycardia EKG read: Interp. by me - X-Ray X-Ray #1 X-Ray: wrist - arthritis, no acute bony changes Interpretation: Reviewed by me - CT/Ultrasound CT/Ultrasound Narrative: CT C-spine: severe DDD - Progress/Reassessment Chief Complaint: Upper Extremity Injury/Problem Progress Note-Subjective: 02/23/17 13:38 discussed results with patient and , no sepsis, but cellulitis of right wrist 02/23/17 14:07 discussed with trimming caser, patient meets in patient criteria for obs admission patient and very relieved that she gets admitted 02/23/17 14:[address] Winn, okay to admit for cellulitis Departure - Departure Clinical Impression: SIRS (systemic inflammatory response syndrome) Cellulitis Qualifiers: Site of cellulitis: extremity Site of cellulitis of extremity: upper extremity Laterality: left Qualified Code(s): L03.114 - Cellulitis of left upper limb Disposition: [facility] Condition: Stable
--- OUTSIDE RECORDS SUMMARY | 2017-02-23 12:17 | XMS REPORT | Encounter Summary ---
:1945 Author Organization [employer] [place] [address] Care Team Providers Name Role Phone Unavailable Primary Care Provider Unavailable Reason for Referral Referral (Routine) Status Reason Specialty Diagnoses / Referred By Referred To Procedures Contact Contact Authorized Specialty Anesthesiology Diagnoses Lumbar stenosis with neurogenic claudication Paramjit, CURT DEPORT Services [facility] Required [id number] [place] [address] Phone: [phone] Phone: Encounter Details Date Type Department Care Team Description 02/04/2017 Orders Only [facility] Melva, Lumbar stenosis with [facility] Alejandra Oliveira RN neurogenic claudication [address] [place] [address] (Primary Dx) [address] [place] [address] [place] [address] Social History Tobacco Use Types [...]
--- OUTSIDE RECORDS SUMMARY | 2017-02-23 12:17 | XMS REPORT | Encounter Summary ---
:1945 Author Organization [employer] [place] [address] Care Team Providers Name Role Phone Unavailable Primary Care Provider Unavailable Reason for Visit Reason Comments Follow-up Encounter Details Date Type Department Care Team Description 02/02/2017 Office Visit [facility] Paramjit, Lumbar stenosis with [facility] MD Andrew neurogenic claudication [address] (Primary Dx) [address] [facility] [place] [address] [place] [phone] Social History Tobacco Use Types Packs/Day [...]
--- OUTSIDE RECORDS SUMMARY | 2017-02-23 12:17 | XMS REPORT | Encounter Summary ---
:1945 Author Organization [employer] [place] [address] Care Team Providers Name Role Phone Unavailable Primary Care Provider Unavailable Reason for Referral MRI/CAT Scan (Routine) Status Reason Specialty Diagnoses / Procedures Referred By Referred To Contact Contact Authorized Other Diagnoses Lumbar degenerative disc disease Paramjit, Procedures MRI LUMBAR SPINE WO CONTRAST MD Andrew [address] [address] Encounter Details Date Type Department Care Team Description 12/30/2016 Orders Only [facility] Paramjit, Lumbar degenerative [facility] MD Andrew disc disease [address] [address] [place], [place] [phone] Social History Tobacco Use Types Packs/Day [...]
--- OUTSIDE RECORDS SUMMARY | 2017-02-23 12:17 | XMS REPORT | Encounter Summary ---
:1945 Author Organization [employer] [place] [address] Care Team Providers Name Role Phone Unavailable Primary Care Provider Unavailable Reason for Referral Surgical (Routine) Status Reason Specialty Diagnoses / Referred By Referred To Procedures Contact Contact Authorized Diagnoses Lumbar disc herniation Lumbar stenosis Paramjit, Procedures Lumbar epidural steroid injection MD Andrew [address] [address] Encounter Details Date Type Department Care Team Description 12/22/2016 Orders Only [facility] Joycelyn Gonzalez Lumbar disc herniation (Primary Dx); [facility] Mai, RN Lumbar stenosis [address] [address] [place] [address] Social History Tobacco Use Types [...]
--- OUTSIDE RECORDS SUMMARY | 2017-02-23 12:17 | XMS REPORT | Clinical Summary ---
:1945 Author Organization [employer] [place] [address] Care Team Providers Name Role Phone Unavailable Primary Care Provider Unavailable Source Comments This disclosure is being made pursuant to the [employer] program and maynot contain all information available regarding this patient.[employer] Allergies Active Allergy Reactions Severity Noted Date [...] Andrew disease 12/22/2016 Office Visit Orthopedic Surgery Parajmit, Lumbar degenerative disc disease (Primary Dx); MD [...] Completed 11/22/2014, 11/20/2012 Implants Implanted Type Area Vault Worker Device Expiration Date Model / Identifier Serial / Lot Long Nail Kit Nail Right: Hip 09/07/2014 3430-360S / Implanted:Qty: 1 on 05/07/2013 by Leeroy Dickson MD / [id number] Scr Lag Ti Ster 10.5x95mm - [id number] Screw Right: Hip SARAVANAN 2016 [id number] / Implanted:Qty: 1 on 05/07/2013 by Leeroy Dickson MD / [id number] Locking Screw Fully Threaded Screw Right: Hip 07/25/2017 [id number] / Implanted:Qty: 1 on 05/07/2013 by Leeroy Dickson MD / [id number] Results MRI LUMBAR SPINE WO CONTRAST (12/16/2016) Specimen Performing Laboratory EXTERNAL NON UPH RAD - NO INTERFACE from Last 3 Months Insurance Payer Benefit Plan / Subscriber ID Type Phone Address Group HUMANA CHOICE HU[employer] CHOICE [facility] [id number] Managed [address] [phone] [id number] [place] [address] Home: [address] [phone] [address] LAURITA HERNANDEZ Personal/Family Self 1945 Home: [address] [phone] [id number] [facility] [employer] Party Other Home: [address] [address] Liability [phone] [place]ad Reyn[place]1 [place] [phone]
--- OUTSIDE RECORDS SUMMARY | 2017-02-23 12:19 | XMS REPORT | Encounter Summary ---
:1945 Author Organization [employer] [place] [address] Care Team Providers Name Role Phone Unavailable Primary Care Provider Unavailable Reason for Visit Reason Comments Follow-up to review Lumbar MRI for back pain Encounter Details Date Type Department Care Team Description 12/22/2016 Office Visit [facility] Paramjit Lumbar degenerative disc disease (Primary Dx); [facility] MD Andrew Lumbar stenosis with neurogenic claudication [address] 3 [facility] 3 [place] [address] [place] [phone] Social History Tobacco Use Types Packs/Day [...]
--- OUTSIDE RECORDS SUMMARY | 2017-02-23 12:20 | XMS REPORT | Encounter Summary ---
:1945 Author Organization [employer] [place] [address] Care Team Providers Name Role Phone Unavailable Primary Care Provider Unavailable Reason for Referral Referral (Routine) Status Reason Specialty Diagnoses / Referred By Referred To Procedures Contact Contact Authorization Not Specialty Physical Diagnoses Lumbar degenerative disc disease [facility] EMMY Morales MD [address] [place] [address] [facility] [place] [address] [place] [address] Phone: Fax: Reason for Visit Reason Comments Hip Pain RIGHT Back Pain Referral (Routine) Status Reason Specialty Diagnoses / Referred By Referred To Procedures Contact Contact Authorized Specialty Orthopedic Diagnoses Right thigh pain DDD (degenerative disc disease), lumbar Dar Nelson, Paramjit, Services Surgery MD Morales, [place] [address] [address] CURTIS [address] [address] [place] [address] Phone: [place] [phone] Fax: Encounter Details Date Type Department Care Team Description 11/03/2016 Office Visit [facility] Paramjit Lumbar degenerative [facility] MD Andrew disc disease (Primary 1603 [facility], [address] [place] [address]) [address] [place] [address] [place] [address] [place] [phone] Social History Tobacco Use Types Packs/Day [...]
--- OUTSIDE RECORDS SUMMARY | 2017-02-23 12:20 | XMS REPORT | Encounter Summary ---
:1945 Author Organization [employer] [place] [address] Care Team Providers Name Role Phone Unavailable Primary Care Provider Unavailable Reason for Referral MRI/CAT Scan (Routine) Status Reason Specialty Diagnoses / Procedures Referred By Referred To Contact Contact Authorized Other Diagnoses Lumbar degenerative disc disease Paramjit, Procedures MRI LUMBAR SPINE WO CONTRAST MD Andrew [address] [address] Reason for Visit Reason Comments Follow-up Encounter Details Date Type Department Care Team Description 12/08/2016 Office Visit [facility] Paramjit, Lumbar degenerative [facility] MD Andrew disc disease (Primary 1603 [facility], 1603 [facility]) [address] [address] [place] [phone] Social History Tobacco Use Types Packs/Day [...] She reports that she went to in [facility] over the past month, but that it [...]
--- OUTSIDE RECORDS SUMMARY | 2017-02-23 12:20 | XMS REPORT | Encounter Summary ---
:1945 Author Organization [employer] [place] [address] Care Team Providers Name Role Phone Unavailable Primary Care Provider Unavailable Reason for Referral Referral (Routine) Status Reason Specialty Diagnoses / Referred By Referred To Procedures Contact Contact Authorized Specialty Orthopedic Diagnoses Right thigh pain DDD (degenerative disc disease), lumbar Dar Nelson, Paramjit, Services Surgery MD Morales, [facility] [address] [facility] 1603 [facility] [address] [address] [address] Phone: [place], [place] [phone] Fax: Encounter Details Date Type Department Care Team Description 11/02/2016 Orders Only [facility] Mattie Zepeda, Right thigh pain (Primary Dx); [facility] RN DDD (degenerative disc disease), lumbar [address] [place] 3 [place] [address] [place] [address] [phone] Social History Tobacco Use Types Packs/Day Years [...]
--- OUTSIDE RECORDS SUMMARY | 2017-02-23 12:20 | XMS REPORT | Encounter Summary ---
:1945 Author Organization [employer] [place] [address] Care Team Providers Name Role Phone Unavailable Primary Care Provider Unavailable Reason for Visit Reason Comments Medication Refill Encounter Details Date Type Department Care Team Description 12/09/2016 Refill [facility] Alejandra Baires, RN Orthopedics [address] [place] [address], [address] [address] [place], [place] [phone] Social History Tobacco Use Types Packs/Day Years Used Date Never Smoker Smokeless Tobacco: Never Used Alcohol Use Drinks/Week oz/Week Comments Yes "Very seldom." Sex Assigned at Date Recorded Not on file as of this encounter Plan of Treatment Not on fileas of this encounter Visit Diagnoses Not on filein this encounter
[2017-02-23 12:21] LABS: Hematocrit 37.4 % (37.0-47.0); Hemoglobin 12.8 gm/dL (12.5-16.0); Mean Cell Volume 90.6 fl (78-100); Mean Corpuscular Hgb Conc 34.2 g/dl (32-36); Mean Platelet Volume 9.9 fl (6.0-9.5); Platelet Count 251 K/mm3 (150-450); Red Blood Count 4.13 M/mm3 (4.2-5.4); Red Cell Distribution Width 13.7 % (11.5-14.0); White Blood Count 17.3 K/mm3 (4.0-10.5)
--- OUTSIDE RECORDS SUMMARY | 2017-02-23 12:22 | XMS REPORT | Encounter Summary ---
:1945 Author Organization [employer] [place] [address] Care Team Providers Name Role Phone Unavailable Primary Care Provider Unavailable Encounter Details Date Type Department Care Team Description 11/02/2016 Abstract [facility] Alejandra Baires, rand maker[address], [address] [facility] 3 [place] [address] [place] [address] [phone] Social History Tobacco Use Types Packs/Day Years Used Date Never Smoker Smokeless Tobacco: Never Used Alcohol Use Drinks/Week oz/Week Comments Yes 2 Glasses of wine 1.2 Sex Assigned at Date Recorded Not on file as of this encounter Plan of Treatment Not on fileas of this encounter Visit Diagnoses Not on filein this encounter
[2017-02-23 12:29] LABS: Total Cells Counted 100
[2017-02-23 12:34] LABS: Albumin * 3.1 gm/dl (3.4-5.0); Anion Gap 12.2 mmol/L (6.8-13.8); BUN/Creatinine Ratio 11.4 (9.0-21.6); Bilirubin, Total 0.9 mg/dL (0.0-1.1); Ca. Corrected For Albumin 8.5 mg/dL (8.4-10.2); Calcium * 8.1 mg/dL (7.9-10.9); Carbon Dioxide 29.8 mmol/L (24-32.6); Total Protein 7.5 gm/dL (6.2-8.2); Uric Acid 3.5 mg/dL (2.6-7.2)
[2017-02-23 12:45] LABS: CRP 17.7 mg/dL (0.0-0.9)
[2017-02-23 12:49] LABS: Atypical (Reactive) Lymph 1 % (0-2); Band 1 % (0-2.0); Lymphocyte 10 % (20-51); Monocyte 13 % (0-9); Neutrophil 75 % (42-75); Platelet Estimate Normal (NORMAL)
[2017-02-23 12:50] LABS: RBC Morphology Normal (NORMAL); Toxic Granulation Trace
[2017-02-23 14:09] LABS: Urine Bilirubin Negative (NEGATIVE); Urine Blood 50 /ul (NEGATIVE); Urine Ketone Negative (NEGATIVE); Urine Nitrite Negative (NEGATIVE); Urine Protein Negative (NEGATIVE)
--- OUTSIDE RECORDS SUMMARY | 2017-02-23 14:23 | XMS REPORT | Encounter Summary ---
:1945 Author Organization [employer] [place] [address] Care Team Providers Name Role Phone Unavailable Primary Care Provider Unavailable Reason for Visit Reason Comments Follow-up Encounter Details Date Type Department Care Team Description 02/02/2017 Office Visit [facility] Paramjit, Lumbar stenosis with [facility] MD Andrew neurogenic claudication [address] (Primary Dx) [address] [facility] 3 [place] [address] [place] [phone] Social History Tobacco Use Types Packs/Day [...]
--- OUTSIDE RECORDS SUMMARY | 2017-02-23 14:23 | XMS REPORT | Clinical Summary ---
:1945 Author Organization [facility] [place] [address] Care Team Providers Name Role Phone Unavailable Primary Care Provider Unavailable Source Comments This disclosure is being made pursuant to the [employer] program and maynot contain all information available regarding this patient.[facility] Allergies Active Allergy Reactions Severity Noted Date [...] Completed 11/22/2014, 11/20/2012 Implants Implanted Type Area Lgsw Device Expiration Date Model / Identifier Serial / Lot Long Nail Kit Nail Right: Hip 09/07/2014 3430-360S / Implanted:Qty: 1 on 05/07/2013 by Leeroy Dickson MD / [id number] Scr Lag Ti Ster 10.5x95mm - [id number] Screw Right: Hip SARAVANAN 2016 3060-0095S / Implanted:Qty: 1 on 05/07/2013 by Leeroy Dickson MD / [id number] Locking Screw Fully Threaded Screw Right: Hip 07/25/2017 [id number] / Implanted:Qty: 1 on 05/07/2013 by Leeroy Dickson MD / [id number] Results MRI LUMBAR SPINE WO CONTRAST (12/16/2016) Specimen Performing Laboratory EXTERNAL NON UPH RAD - NO INTERFACE from Last 3 Months Insurance Payer Benefit Plan / Subscriber ID Type Phone Address Group HUMANA CHOICE [employer] [facility] [id number] Managed [address] [address] [phone] [id number] [place] [address] Home: [address] [phone] [address] LAURITA HERNANDEZ Personal/Family Self 1945 Home: [address] [phone] [id number] [facility] [employer] Party Other Home: [address] [address] Liability [phone] [place] [id number]
--- OUTSIDE RECORDS SUMMARY | 2017-02-23 14:23 | XMS REPORT | Encounter Summary ---
:1945 Author Organization [employer] [place] [address] Care Team Providers Name Role Phone Unavailable Primary Care Provider Unavailable Reason for Referral Referral (Routine) Status Reason Specialty Diagnoses / Referred By Referred To Procedures Contact Contact Authorized Specialty Anesthesiology Diagnoses Lumbar stenosis with neurogenic claudication Paramjit, CURT [facility] Required [address] [place] [id number] [place] [address] Phone: [phone] Phone: Encounter Details Date Type Department Care Team Description 02/04/2017 Orders Only [facility] Melva, Lumbar stenosis with [facility] Alejandra Oliveira RN neurogenic claudication [address] [place] [address] (Primary Dx) [address] [place] 3 [place] [address] [place] [address] Social History Tobacco Use Types [...]
[2017-02-23 14:24] LABS: Urine Appearance Clear; Urine Color Yellow
--- OUTSIDE RECORDS SUMMARY | 2017-02-23 14:24 | XMS REPORT | Encounter Summary ---
:1945 Author Organization [employer] [place] [address] Care Team Providers Name Role Phone Unavailable Primary Care Provider Unavailable Reason for Visit Reason Comments Follow-up to review Lumbar MRI for back pain Encounter Details Date Type Department Care Team Description 12/22/2016 Office Visit [facility] Paramjit Lumbar degenerative disc disease (Primary Dx); [facility] MD Andrew Lumbar stenosis with neurogenic claudication [address] 3 [facility] 3 [place] [address] [place] [phone] Social History Tobacco Use Types Packs/Day [...]
--- OUTSIDE RECORDS SUMMARY | 2017-02-23 14:24 | XMS REPORT | Encounter Summary ---
:1945 Author Organization [employer] [place] [address] Care Team Providers Name Role Phone Unavailable Primary Care Provider Unavailable Reason for Referral MRI/CAT Scan (Routine) Status Reason Specialty Diagnoses / Procedures Referred By Referred To Contact Contact Authorized Other Diagnoses Lumbar degenerative disc disease Paramjit, Procedures MRI LUMBAR SPINE WO CONTRAST MD Andrew [address] [address] Encounter Details Date Type Department Care Team Description 12/30/2016 Orders Only [facility] Paramjit, Lumbar degenerative [facility] MD Andrew disc disease [address] [address] [place], [place] [phone] Social History Tobacco Use Types Packs/Day [...]
--- OUTSIDE RECORDS SUMMARY | 2017-02-23 14:24 | XMS REPORT | Encounter Summary ---
:1945 Author Organization [employer] [place] [address] Care Team Providers Name Role Phone Unavailable Primary Care Provider Unavailable Reason for Referral Surgical (Routine) Status Reason Specialty Diagnoses / Referred By Referred To Procedures Contact Contact Authorized Diagnoses Lumbar disc herniation Lumbar stenosis Paramjit, Procedures Lumbar epidural steroid injection MD Andrew [address] [address] Encounter Details Date Type Department Care Team Description 12/22/2016 Orders Only [facility] Joycelyn Gonzalez Lumbar disc herniation (Primary Dx); [facility] Mai, RN Lumbar stenosis [address] [address] [place] [address] Social History Tobacco Use Types [...]
--- OUTSIDE RECORDS SUMMARY | 2017-02-23 14:24 | XMS REPORT | Encounter Summary ---
:1945 Author Organization [employer] [place] [address] Care Team Providers Name Role Phone Unavailable Primary Care Provider Unavailable Reason for Visit Reason Comments Procedure Encounter Details Date Type Department Care Team Description 12/10/2016 Telephone [facility] Alejandra Baires RN Procedure [facility] [address] [place] [address], [address] [facility] 3 [place] [address] [place], [place] [id number] Social History Tobacco Use Types Packs/Day Years Used Date Never Smoker Smokeless Tobacco: Never Used Alcohol Use Drinks/Week oz/Week Comments Yes "Very seldom." Sex Assigned at Date Recorded Not on file as of this encounter Plan of Treatment Not on fileas of this encounter Visit Diagnoses Not on filein this encounter
--- OUTSIDE RECORDS SUMMARY | 2017-02-23 14:24 | XMS REPORT | Encounter Summary ---
:1945 Author Organization [employer] [place] [address] Care Team Providers Name Role Phone Unavailable Primary Care Provider Unavailable Reason for Visit Reason Comments Medication Refill Encounter Details Date Type Department Care Team Description 12/09/2016 Refill [facility] Alejandra Baires, RN Orthopedics [address] [place] [address], [address] [address] [place], [place] [id number] Social History Tobacco Use Types Packs/Day Years Used Date Never Smoker Smokeless Tobacco: Never Used Alcohol Use Drinks/Week oz/Week Comments Yes "Very seldom." Sex Assigned at Date Recorded Not on file as of this encounter Plan of Treatment Not on fileas of this encounter Visit Diagnoses Not on filein this encounter
--- OUTSIDE RECORDS SUMMARY | 2017-02-23 14:24 | XMS REPORT | Encounter Summary ---
:1945 Author Organization [employer] [place] [address] Care Team Providers Name Role Phone Unavailable Primary Care Provider Unavailable Reason for Referral MRI/CAT Scan (Routine) Status Reason Specialty Diagnoses / Procedures Referred By Referred To Contact Contact Authorized Other Diagnoses Lumbar degenerative disc disease Paramjit, Procedures MRI LUMBAR SPINE WO CONTRAST MD Andrew [address] [address] Reason for Visit Reason Comments Follow-up Encounter Details Date Type Department Care Team Description 12/08/2016 Office Visit [facility] Paramjit, Lumbar degenerative [facility] MD Andrew disc disease (Primary 1603 [facility], 1603 [facility]) [address] [address] [place], [place] [phone] Social History Tobacco Use Types Packs/Day [...] She reports that she went to in [facility] over the past month, but that [...]
[2017-02-23 14:25] LABS: Urine Bacteria TRACE; Urine Mucus Few - 1+; Urine RBC 0-5 /hpf (0-5); Urine WBC None Seen /hpf (0-5)
--- OUTSIDE RECORDS SUMMARY | 2017-02-23 14:25 | XMS REPORT | Encounter Summary ---
:1945 Author Organization [employer] [place] [address] Care Team Providers Name Role Phone Unavailable Primary Care Provider Unavailable Reason for Referral Referral (Routine) Status Reason Specialty Diagnoses / Referred By Referred To Procedures Contact Contact Authorization Not Specialty Physical Diagnoses Lumbar degenerative disc disease [facility]T [facility] EMMY Morales MD [address] [place] [address] [facility] [address] [place] [address] Phone: Fax: Reason for Visit Reason Comments Hip Pain RIGHT Back Pain Referral (Routine) Status Reason Specialty Diagnoses / Referred By Referred To Procedures Contact Contact Authorized Specialty Orthopedic Diagnoses Right thigh pain DDD (degenerative disc disease), lumbar Dar Nelson, Paramjit, Services Surgery MD Morales, [place] [address] [address] CURTIS [address] [address] [address] [address] Phone: [place], [place] [phone] Fax: Encounter Details Date Type Department Care Team Description 11/03/2016 Office Visit [facility] Paramjit Lumbar degenerative [facility] MD Andrew disc disease (Primary 1603 [facility], [address] [place] [address]) [address] [place] 3 [place] [address] [place] [phone] Social History Tobacco Use Types Packs/Day [...]
--- OUTSIDE RECORDS SUMMARY | 2017-02-23 14:25 | XMS REPORT | Encounter Summary ---
:1945 Author Organization [employer] [place] [address] Care Team Providers Name Role Phone Unavailable Primary Care Provider Unavailable Reason for Referral Referral (Routine) Status Reason Specialty Diagnoses / Referred By Referred To Procedures Contact Contact Authorized Specialty Orthopedic Diagnoses Right thigh pain DDD (degenerative disc disease), lumbar Dar Nelson, Paramjit, Services Surgery MD Morales, [facility] 1603 [facility] [address] [address] [address] Phone: [place], [place] [phone] Fax: Encounter Details Date Type Department Care Team Description 11/02/2016 Orders Only [facility] Mattie Zepeda, Right thigh pain (Primary Dx); [facility] RN DDD (degenerative disc disease), lumbar [address] [place] 3 [place] [address] [place] [address] [phone] Social History Tobacco Use Types Packs/Day Years [...]
--- OUTSIDE RECORDS SUMMARY | 2017-02-23 14:26 | XMS REPORT | Encounter Summary ---
:1945 Author Organization [employer] [place] [address] Care Team Providers Name Role Phone Unavailable Primary Care Provider Unavailable Encounter Details Date Type Department Care Team Description 11/02/2016 Abstract [facility] Alejandra Baires, legal administrator[address], [address] [facility] 3 [place] [address] [place] [address] [phone] Social History Tobacco Use Types Packs/Day Years Used Date Never Smoker Smokeless Tobacco: Never Used Alcohol Use Drinks/Week oz/Week Comments Yes 2 Glasses of wine 1.2 Sex Assigned at Date Recorded Not on file as of this encounter Plan of Treatment Not on fileas of this encounter Visit Diagnoses Not on filein this encounter
[2017-02-23] MEDS ORDERED: ACETAMINOPHEN 500 MG TABLET PO PRN (14:29)
[2017-02-23] MEDS ORDERED: ONDANSETRON HCL/PF 2 MG/ML VIAL IV PRN (14:29)
[2017-02-23] MEDS ORDERED: MORPHINE SULFATE 4 MG/ML SYRG IV PRN (14:29)
[2017-02-23] MEDS: oxyCODONE HCL/ACETAMINOPHEN 1 TAB TABLET PO PRN (15:51)
[2017-02-23] MEDS ORDERED: KETOROLAC TROMETHAMINE 15 MG/ML VIAL IV SCH (19:57)
[2017-02-24] MEDS: oxyCODONE HCL/ACETAMINOPHEN 1 TAB TABLET PO PRN ×3 (01:55→22:19)
[2017-02-24] MEDS: KETOROLAC TROMETHAMINE 15 MG/ML VIAL IV PRN ×3 (01:55→22:20)
[2017-02-24 05:57] LABS: Hematocrit 32.1 % (37.0-47.0); Hemoglobin 10.8 gm/dL (12.5-16.0); Mean Cell Volume 91.7 fl (78-100); Mean Corpuscular Hemoglobin 30.9 pg (27-31); Mean Corpuscular Hgb Conc 33.6 g/dl (32-36); Mean Platelet Volume 10.4 fl (6.0-9.5); Neutrophil # 8.6 K/mm3 (1.3-6.0); Neutrophil % 76.4 % (42-75.0); Platelet Count 202 K/mm3 (150-450); Red Cell Distribution Width 13.6 % (11.5-14.0); White Blood Count 11.3 K/mm3 (4.0-10.5)
[2017-02-24 06:10] LABS: BUN/Creatinine Ratio 13.8 (9.0-21.6); Calcium * 7.8 mg/dL (7.9-10.9); Estimated Creat Clear 43.2
[2017-02-24] MEDS: LISINOPRIL 40 MG TABLET PO SCH (08:05)
[2017-02-24] MEDS: CHOLECALCIFEROL 1,000 UNIT CAPSULE PO SCH (08:06)
[2017-02-24] MEDS: SIMVASTATIN 20 MG TABLET PO SCH (08:06)
[2017-02-24] MEDS: POTASSIUM CHLORIDE 20 MEQ TABLET.SA PO SCH ×2 (08:06→17:01)
[2017-02-24] MEDS: ASPIRIN 325 MG TABLET.DR PO SCH (08:06)
[2017-02-24] MEDS ORDERED: ALENDRONATE SODIUM 10 MG PO SCH (09:00)
--- NOTE | 2017-02-24 17:05 | HP ---
Chief Complaint - Chief Complaint Date of Service: 02/23/17 Time of Service: 17:30 Chief Complaint: Neck pain, right hand and wrist pain History of Present Illness: Laurita is a 72 yo female with 2 days of right hand and wrist pain and neck pain that have slowly been worsening. She was initially seen in the ER for neck pain and stiffness. She had a WBC of 20k. There was concern for meningitis and a lumbar puncture was performed, but normal. It was though she had a neck strain and she was given muscle relaxor. At this time the patient's complaint was more neck pain, although she does remember the hand and wrist beginning to hurt around this time as well. She went home but the right wrist and hand began to hurt worse and became swollen. She denies injury. She had decreased ROM to right wrist. She reports neck is feeling better. Denies fever. Denies history of gout but does state her mother has gout. She denies any significant change in her diet. She occasionally drinks alcohol. Had 3 beers 2 or 3 days before these symptoms started, but this was not out of the usual. - Patient's Past Medical History Patient History - Medical: Osteoporosis Patient History - Cardiac/Respiratory: Hypertension, Hyperlipidemia Patient History - Cancer: No Hx of Cancer Patient History - Surgical Procedures: Total Knee Replacement, Other Patient History - Other: None LMP (females 10-50): Menopausal - Family History Mother Family History - Medical: , Other - Gout Family History - Cardiac/Respiratory: Hypertension Family History - Cancer: No pertinent family hx Father Family History - Medical: , No pertinent hx Family History - Cardiac/Respiratory: History Unknown Family History - Cancer: History Unknown - Social History Living Situations: home Abuse History: No History of abuse Psych History: No pertinent hx Smoking Status: Never smoker Have you smoked in the past 12 months: No Alcohol Use: occasionally Drug Use: none - Immunizations Immunizations Up to Date: Yes Hx Pneumococcal Vaccination: Yes History of Influenza Vaccine: Yes Review Of Systems (GEN) - Review of Systems Generalized/Overall Review: Absent: Weakness, Chills, Fever, Fatigue EENTM: Present: No Symptoms Reported Respiratory: Present: No Symptoms Reported Cardiac: Present: No Symptoms Reported Abdominal: Present: No Symptoms Reported Genitourinary: Present: No Symptoms Reported Musculoskeletal: Present: Joint Pain - Right hand and wrist, Joint Swelling, Neck Pain Neurological: Present: Headache. Absent: Numbness Skin: Present: Other - Right hand and wrist hot, mildly erythematous Endocrine: Present: No Symptoms Reported Immunizations: IMMUNIZATION HX Immunizations Up to Date Yes History of Influenza Vaccine Yes Hx Pneumococcal Vaccination Yes Allergies/Adverse Reactions: Allergies Allergy/AdvReac Type Severity Reaction Status Date / Time No Known Allergies Allergy Verified 02/23/17 15:46 Home Medications: HOME MEDICATIONS Alendronate Sodium 10 mg PO DAILY 02/23/17 [Last Taken Unknown] Aspirin 325 mg PO DAILY 02/23/17 [Last Taken Unknown] Cholecalciferol [Vitamin D] 1,000 unit PO DAILY 02/23/17 [Last Taken Unknown] Lisinopril [Zestril] 40 mg PO DAILY 02/23/17 [Last Taken Unknown] Pantoprazole Sodium 40 mg PO HS 02/23/17 [Last Taken Unknown] Simvastatin [Zocor] 20 mg PO DAILY 02/23/17 [Last Taken Unknown] Cefdinir [Omnicef] 300 mg PO BID #14 capsule 02/26/17 [Last Taken Unknown] Indomethacin [Indocin] 50 mg PO BIDWM #30 capsule 02/26/17 [Last Taken Unknown] Exam - Exam Vital Signs: Vital Signs - Last Taken Temp 36.7 C 02/24/17 15:57 Pulse 94 02/24/17 15:57 Resp 18 02/24/17 15:57 BP 92/55 02/24/17 15:57 Pulse Ox 92 02/24/17 15:57 Constitutional: Present: Alert, Oriented x3, Cooperative ENT Exam: Present: hearing grossly normal Eye Exam: bilateral eye: normal inspection Neck: Present: limited range of motion, stiff neck. Absent: lymphadenopathy (R) , lymphadenopathy (L), tender lateral, tender midline, thyromegaly Respiratory: Present: lungs clear, normal breath sounds Cardiovascular/Chest: Present: no murmur, tachycardia Abdomen: Present: Normal bowel sounds, soft, nontender, nondistended Extremity: Present: other - Right hand swollen, hot, mild erythema on dorsum. Tender to palpation. Minimal ROM to right wrist. No crepitus, no effusion, no ecchymosis. Skin Exam: Present: other - There is a small 1-2 mm crusting over dorsum of hand. No significant amount of erythema around this area compared to other areas. No drainage. Lymphatic: Present: no adenopathy Appearance: Present: appropriate appearance, appropriate insight Eye contact: Present: cooperative, good eye contact, normal speech Diagnostic Studies: Abnormal Lab Results 02/24/17 02/24/17 Range/Units 05:49 05:49 WBC 11.3 H D (4.0-10.5) K/mm3 RBC 3.50 L (4.2-5.4) M/mm3 Hgb 10.8 L (12.5-16.0) gm/dL Hct 32.1 L (37.0-47.0) % MPV 10.4 H (6.0-9.5) fl Immature Gran % (Auto) 0.50 H (0.001-0.429) % Immature Gran # (Auto) 0.06 H (0.000-0.0310) K/mm3 Neutrophils % 76.4 H (42-75.0) % Lymphocytes % 12.1 L (20-51) % Neutrophils # 8.6 H (1.3-6.0) K/mm3 Lymphocytes # 1.4 L (1.5-3.5) k/mm3 Potassium 3.0 L (3.4-4.6) mmol/L Calcium 7.8 L (7.9-10.9) mg/dL Microbiology 02/23/17 14:31 Urine Culture - Preliminary Urine,Clean Catch No Growth Laboratory Results WBC 11.3 K/mm3 (4.0-10.5) H D 02/24/17 05:49 RBC 3.50 M/mm3 (4.2-5.4) L 02/24/17 05:49 Hgb 10.8 gm/dL (12.5-16.0) L 02/24/17 05:49 Hct 32.1 % (37.0-47.0) L 02/24/17 05:49 MCV 91.7 fl (78-100) 02/24/17 05:49 MCH 30.9 pg (27-31) 02/24/17 05:49 MCHC 33.6 g/dl (32-36) 02/24/17 05:49 RDW 13.6 % (11.5-14.0) 02/24/17 05:49 Plt Count 202 K/mm3 (150-450) 02/24/17 05:49 MPV 10.4 fl (6.0-9.5) H 02/24/17 05:49 Immature Gran % (Auto) 0.50 % (0.001-0.429) H 02/24/17 05:49 Immature Gran # (Auto) 0.06 K/mm3 (0.000-0.0310) H 02/24/17 05:49 Neutrophils % 76.4 % (42-75.0) H 02/24/17 05:49 Neutrophils % (Manual) 75 % (42-75) 02/23/17 12:15 Band Neuts % (Manual) 1 % (0-2.0) 02/23/17 12:15 Lymphocytes % 12.1 % (20-51) L 02/24/17 05:49 Lymphocytes % (Manual) 10 % (20-51) L 02/23/17 12:15 Monocytes % 8.7 % (0.0-9) 02/24/17 05:49 Monocytes % (Manual) 13 % (0-9) H 02/23/17 12:15 Eosinophils % 1.9 % (0.0-3.0) 02/24/17 05:49 Basophils % 0.4 % (0.0-1.0) 02/24/17 05:49 Nucleated RBC % 0.0 k/mm3 (0-1) 02/24/17 05:49 Neutrophils # 8.6 K/mm3 (1.3-6.0) H 02/24/17 05:49 Neutrophils # (Manual) 13.0 K/mm3 (1.3-6.0) H 02/23/17 12:15 Lymphocytes # 1.4 k/mm3 (1.5-3.5) L 02/24/17 05:49 Lymphocytes # (Manual) 1.7 k/mm3 (1.5-3.5) 02/23/17 12:15 Monocytes # 1.0 k/mm3 (0.0-1.0) 02/24/17 05:49 Monocytes # (Manual) 2.2 k/mm3 (0.0-1.0) H 02/23/17 12:15 Eosinophils # 0.2 k/mm3 (0.0-0.7) 02/24/17 05:49 Absolute Basophils 0.1 k/mm3 (0.0-0.1) 02/24/17 05:49 Atypic/Reactive Lymphs 1 % (0-2) 02/23/17 12:15 Toxic Granulation Trace 02/23/17 12:15 Toxic Vacuolation Trace 02/23/17 12:15 Platelet Estimate Normal (NORMAL) 02/23/17 12:15 RBC Morphology Normal (NORMAL) 02/23/17 12:15 Sodium 141 mmol/L (132-142) 02/24/17 05:49 Plasma Sodium 141 mmol/L (130-142) 02/24/17 05:49 Potassium 3.0 mmol/L (3.4-4.6) L 02/24/17 05:49 Chloride 104 mmol/L (97-106) 02/24/17 05:49 Carbon Dioxide 28.0 mmol/L (24-32.6) 02/24/17 05:49 Anion Gap 12.0 mmol/L (6.8-13.8) 02/24/17 05:49 BUN 12 mg/dL (3-23) 02/24/17 05:49 Creatinine 0.87 mg/dL (0.4-1.4) 02/24/17 05:49 Est GFR (Non-Af Amer) 68 mL/min (60-130) 02/24/17 05:49 BUN/Creatinine Ratio 13.8 (9.0-21.6) 02/24/17 05:49 Random Glucose 109 mg/dL (70-110) 02/24/17 05:49 Lactic Acid, Venous 1.6 mmol/L (0.4-1.9) 02/23/17 12:15 Uric Acid 3.5 mg/dL (2.6-7.2) 02/23/17 12:15 Calcium 7.8 mg/dL (7.9-10.9) L 02/24/17 05:49 Calcium Adj for Albumin 8.5 mg/dL (8.4-10.2) 02/23/17 12:15 Total Bilirubin 0.9 mg/dL (0.0-1.1) 02/23/17 12:15 AST 11 U/L (0-48) 02/23/17 12:15 ALT 14 U/L (19-67) L 02/23/17 12:15 Alkaline Phosphatase 80 U/L (50-170) 02/23/17 12:15 C-Reactive Prot, Quant 17.7 mg/dL (0.0-0.9) H 02/23/17 12:15 Total Protein 7.5 gm/dL (6.2-8.2) 02/23/17 12:15 Albumin 3.1 gm/dl (3.4-5.0) L 02/23/17 12:15 Procalcitonin 0.05 ng/mL (0.05-0.50) 02/23/17 12:15 Urine Color Yellow 02/23/17 14:03 Urine Appearance Clear 02/23/17 14:03 Urine pH 7.0 pH (5.0-7.0) 02/23/17 14:03 Ur Specific [place] 1.010 SP.GR. (1.005-1.010) 02/23/17 14:03 Urine Protein Negative mg/dL (NEGATIVE) 02/23/17 14:03 Urine Glucose (UA) Negative mg/dL (NEGATIVE) 02/23/17 14:03 Urine Ketones Negative mg/dL (NEGATIVE) 02/23/17 14:03 Urine Blood 50 /ul (NEGATIVE) H 02/23/17 14:03 Urine Nitrate Negative (NEGATIVE) 02/23/17 14:03 Urine Bilirubin Negative mg/dl (NEGATIVE) 02/23/17 14:03 Urine Urobilinogen 2.0 EU/dl (NORMAL) H 02/23/17 14:03 Ur Leukocyte Esterase Negative /ul (NEGATIVE) 02/23/17 14:03 Urine RBC 0-5 /hpf (0-5) 02/23/17 14:03 Urine WBC None seen /hpf (0-5) 02/23/17 14:03 Ur Epithelial Cells 0-5 /hpf (0-5) 02/23/17 14:03 Urine Bacteria Trace (NONE) 02/23/17 14:03 Urine Mucus Few - 1+ (NONE) H 02/23/17 14:03 Urine Culture Comments No culture indicated 02/23/17 14:03 Assessment/Plan - Narrative Narrative: Laurita is a 72 yo Caucausian female with unknown cause to her right hand and wrist pain, swelling, heat, decreased, ROM, and mild erythema. Differential includes cellulitis, osteomyelitis, septic arthritis, and gout. History does not help. Will admit to observation at this time. Will need MRI of hand and wrist to evaluate this further. Due to possibility of septic arthritis and osteomyelitis will start rocephin. Expect 1 midnight stay if improves, however based on MRI findings this may change. - Assessment/Plan (1) Right hand pain Problem: Acute (2) Right wrist pain Problem: Acute (3) Cellulitis Problem: Acute Qualifiers: Site of cellulitis: extremity Site of cellulitis of extremity: upper extremity Laterality: left Qualified Code(s): L03.114 - Cellulitis of left upper limb (4) SIRS (systemic inflammatory response syndrome) Problem: Acute (5) Muscle spasms of neck Problem: Acute
[2017-02-24] MEDS: INDOMETHACIN 25 MG CAPSULE PO SCH (20:21)
[2017-02-24] MEDS: PANTOPRAZOLE SODIUM 40 MG TABLET.EC PO SCH (20:22)
--- NOTE | 2017-02-24 23:48 | PN ---
Subjective - Date and Time Seen Date: 02/24/17 Time: 17:00 Subjective Narrative: Right hand and wrist are still very painful, swollen, and hot. Minimal redness. Neck pain is better and less stiff. MRI of right hand and wrist performed today which radiology reports possible septic arthritis and osteomyelitis of wrist. Objective - Vitals Vitals: Last Vital Signs Temp 36.7 C 02/24/17 15:57 Pulse 94 02/24/17 15:57 Resp 18 02/24/17 15:57 BP 92/55 02/24/17 15:57 Pulse Ox 92 02/24/17 15:57 - Exam Constitutional: Present: Alert, Oriented x3, Cooperative ENT Exam: Present: hearing grossly normal Respiratory: Present: lungs clear, normal breath sounds Cardiovascular/Chest: Present: regular rate, rhythm, no murmur Abdomen: Present: Normal bowel sounds, soft, nontender, nondistended Extremity: Present: other - Right hand and wrist with slight improvement of pain , swelling, heat, and ROM. Assessment/Plan Plan Narrative: MRI today shows suspicion of septic arthritis and osteomyelitis. WBC improved to 11k today. Will continue rocephin. Will discuss with orthopedics and have them review MRI. Due to concern for septic arthritis will change to acute inpatient status as she will likely need a longer course of IV antibiotics until it improves further and we get recommendation from orthopedics. - Problems/Diagnosis (1) Septic arthritis Problem: Acute (2) Osteomyelitis Problem: Acute
[2017-02-25 06:16] LABS: Hematocrit 31.6 % (37.0-47.0); Hemoglobin 10.7 gm/dL (12.5-16.0); Mean Cell Volume 92.4 fl (78-100); Mean Corpuscular Hemoglobin 31.3 pg (27-31); Mean Corpuscular Hgb Conc 33.9 g/dl (32-36); Mean Platelet Volume 10.4 fl (6.0-9.5); Neutrophil # 5.5 K/mm3 (1.3-6.0); Neutrophil % 74.5 % (42-75.0); Platelet Count 218 K/mm3 (150-450); Red Blood Count 3.42 M/mm3 (4.2-5.4); Red Cell Distribution Width 13.3 % (11.5-14.0); White Blood Count 7.4 K/mm3 (4.0-10.5)
[2017-02-25 06:22] LABS: Albumin * 2.3 gm/dl (3.4-5.0); Anion Gap 11.5 mmol/L (6.8-13.8); BUN/Creatinine Ratio 21.8 (9.0-21.6); Bilirubin, Total 0.3 mg/dL (0.0-1.1); CRP 12.8 mg/dL (0.0-0.9); Ca. Corrected For Albumin 9.2 mg/dL (8.4-10.2); Calcium * 8.2 mg/dL (7.9-10.9); Carbon Dioxide 28.4 mmol/L (24-32.6); Potassium 3.9 mmol/L (3.4-4.6); Total Protein 5.9 gm/dL (6.2-8.2)
[2017-02-25] MEDS: CHOLECALCIFEROL 1,000 UNIT CAPSULE PO SCH (08:00)
[2017-02-25] MEDS: INDOMETHACIN 25 MG CAPSULE PO SCH ×2 (08:00→17:52)
[2017-02-25] MEDS: LISINOPRIL 40 MG TABLET PO SCH (08:00)
[2017-02-25] MEDS: ASPIRIN 325 MG TABLET.DR PO SCH (08:00)
[2017-02-25] MEDS: SIMVASTATIN 20 MG TABLET PO SCH (08:01)
[2017-02-25] MEDS ORDERED: MORPHINE SULFATE 2 MG/ML DISP.SYRIN IV PRN (10:02)
[2017-02-25] MEDS: PANTOPRAZOLE SODIUM 40 MG TABLET.EC PO SCH (20:29)
[2017-02-25] MEDS ORDERED: CEFDINIR 250 MG/5 ML BTL PO ONE (21:15)
[2017-02-25] MEDS: CEFDINIR 300 MG CAPSULE PO SCH (21:41)
--- NOTE | 2017-02-25 22:23 | PN ---
Subjective - Date and Time Seen Date: 02/25/17 Time: 14:00 Subjective Narrative: Laurita reports a lot less pain and swelling today. Has improved ROM. Discussed with Dr. Graham of orthopedics. Based on his review of MRI and clinical presentation he suspects gout is more likely. As she has improved with antibiotics as well as nsaids would elect to keep her on antibiotics to cover for the possibility of infection but recommended Endomethicin for gout, this was started last night. WBC normal today. Objective - Vitals Vitals: Last Vital Signs Temp 36.5 C 02/25/17 19:00 Pulse 78 02/25/17 19:00 Resp 18 02/25/17 19:00 BP 153/84 02/25/17 19:00 Pulse Ox 96 02/25/17 19:00 - Abnormal Lab Findings Abnormal Lab Findings: Abnormal Lab Results 02/25/17 02/25/17 Range/Units 05:00 05:00 RBC 3.42 L (4.2-5.4) M/mm3 Hgb 10.7 L (12.5-16.0) gm/dL Hct 31.6 L (37.0-47.0) % MCH 31.3 H (27-31) pg MPV 10.4 H (6.0-9.5) fl Lymphocytes % 15.4 L (20-51) % Lymphocytes # 1.1 L (1.5-3.5) k/mm3 BUN/Creatinine Ratio 21.8 H (9.0-21.6) Random Glucose 126 H (70-110) mg/dL C-Reactive Prot, Quant 12.8 H (0.0-0.9) mg/dL Total Protein 5.9 L (6.2-8.2) gm/dL Albumin 2.3 L (3.4-5.0) gm/dl - Exam Constitutional: Present: Alert, Oriented x3, Cooperative ENT Exam: Present: hearing grossly normal Respiratory: Present: lungs clear, normal breath sounds Cardiovascular/Chest: Present: regular rate, rhythm, no murmur Abdomen: Present: Normal bowel sounds, soft, nontender, nondistended Extremity: Present: other - Minimal swelling and pain to palpation. Improved ROM to right wrist. Skin Exam: Present: normal color, warm/dry, no cyanosis Assessment/Plan Plan Narrative: Laurita is much improved today. I suspect that she has gout and has mostly improved from toradol that was initially given but also endomethicin that was started last night. Discussing case with ortho and having them review MRI they agree that gout is more likely. However there is also the possibility of septic arthritis vs osteomyelitis on the MRI, although this presentation could also be from gout. She has improved while being on antibiotics, rocephin. However the dramatic improvement of her WBC, pain, swelling, and ROM is much faster than I would expect to see improvement from an infectious etiology. However to cover for infection will stop rocephin and change to cefdinir. Will keep her overnight and if she continues to improve will plan to discharge to home tomorrow on treatment for gout, with coverage for infection to be on the safe side. - Problems/Diagnosis (1) Gout Problem: Acute (2) Septic arthritis Problem: Acute
--- NOTE | 2017-02-26 07:04 | DS ---
<Abi Bourne - Last Filed: 03/21/17 16:09> (1) Cellulitis Problem: Acute QualifierTitle: Site of cellulitis: extremity Site of cellulitis of extremity: upper extremity Laterality: left Qualified Code(s): L03.114 - Cellulitis of left upper limb (2) Gout Problem: Acute QualifierTitle: Gout site: wrist Gout etiology: unspecified cause Chronicity: acute Laterality: right Qualified Code(s): M10.9 - Gout, unspecified (3) Osteomyelitis Problem: Acute (4) Right hand pain Problem: Acute (5) Right wrist pain Problem: Acute (6) Septic arthritis Problem: Acute QualifierTitle: Septic arthritis location: wrist Septic arthritis organism: due to unspecified organism Laterality: right Qualified Code(s): M00.9 - Pyogenic arthritis, unspecified Description of Stay: Date of Admission: 02/23/17 Date of Discharge: 02/26/17 Description of Stay: Laurita is a 72 yo female with 2 days of right hand and wrist pain and neck pain that have slowly been worsening. She was initially seen in the ER for neck pain and stiffness. She had a WBC of 20k. There was concern for meningitis and a lumbar puncture was performed, but normal. It was though she had a neck strain and she was given muscle relaxor. At this time the patient's complaint was more neck pain, although she does remember the hand and wrist beginning to hurt around this time as well. She went home but the right wrist and hand began to hurt worse and became swollen. She denies injury. She had decreased ROM to right wrist. She reports neck is feeling better. Denies fever. Denies history of gout but does state her mother has gout. She denies any significant change in her diet. She occasionally drinks alcohol. Had 3 beers 2 or 3 days before these symptoms started, but this was not out of the usual. Laurita was started on IV rocephin for possible septic arthritis seen on MRI. Consultation with orthopaedics revealed that images looked more consistent with gout. Therefore, patient was then placed on indomethacin. After treating with the rocephin and indomethacin, the patient's symptoms improved and wbc normalized. The patient was able to be discharged on 02/26/17 with prescriptions for cefdinir and indomethacin. Procedures Performed: see notes below List Procedures: CT Cervical W/O IMPRESSION: MODERATE MULTILEVEL CERVICAL SPONDYLOSIS WITH NO ACUTE OSSEOUS PATHOLOGY OTHERWISE IDENTIFIED. MRI of Upper Ext Joint W/WO RT (02/24/17) IMPRESSION: 1. Tenosynovitis of the extensor carpi radialis brevis and longus tendon sheath , which could represent infection versus noninfectious inflammatory processes. 2. Crescentic fluid deep within the carpal tunnel, which could be postsurgical but consider possible infection. 3. Abnormal fluid within the distal radioulnar joint, and radiocarpal joints with enhancement. Consider septic arthritis. 4. Multiple marrow signal abnormalities of the carpal bones, which are nonspecific and could be related to underlying degenerative arthropathy or even postoperative changes, but consider osteomyelitis. Discharge Disposition: Home self care Disposition: Home self-care Condition: Undetermined Discharge Activity: Activity as tolerated Discharge Diet: General/regular food, Other Referrals: Yvonne Ballard DO [Primary Care Provider] - One Week Problem Oriented Discharge Instructions to Patient/Family: Gout, [id number], Septic Arthritis Additional Patient Instructions (free text): finish all of antibiotic as prescribed. take probiotic with antibiotic if diarrhea develops. New Prescriptions: Cefdinir and Indomethacin - Sent in the pharmacy. Follow up with pcp in 2 weeks. Complete Home Medications List: Complete Home Medication List: Lisinopril [Zestril] 40 mg PO DAILY 02/23/17 Alendronate Sodium 10 mg PO DAILY 03/23/17 Aspirin [Aspirin Enteric Coated] 325 mg PO DAILY 03/23/17 Cholecalciferol (Vitamin D3) [Vitamin D3] 1,000 unit PO DAILY 03/23/17 Pantoprazole Sodium [Protonix] 40 mg PO DAILY 03/23/17 Simvastatin [Zocor] 20 mg PO HS 03/23/17 <Ty Winn - Last Filed: 03/29/17 09:13> (1) Gout Problem: Acute Qualifiers: Gout site: wrist Gout etiology: unspecified cause Chronicity: acute Laterality: right Qualified Code(s): M10.9 - Gout, unspecified (2) Septic arthritis Problem: Acute Qualifiers: Septic arthritis location: wrist Septic arthritis organism: due to unspecified organism Laterality: right Qualified Code(s): M00.9 - Pyogenic arthritis, unspecified Description of Stay: Agree with narrative and plan. Patient initially thought to have septic arthritis as seen on the MRI and reported by radiology and at that time was admitted to acute inpatient treatment and continued on antibiotics. However after reviewing case with orthopedics, Dr. Graham felt the MRI showed gout. She was continued on antibiotics but started on Toradol and indomethicin and rapidly improved. Due to the speed at which she improved on anti-inflammatories it is more likely that she had gout than septic arthritis, however due to the initial report on the MRI showing possible septic arthritis she was continued on antibiotics just to be safe. Her symptoms completely resolved and she was discharged to home. Procedures Performed: none Discharge Disposition: Home self care Discharge Activity: Activity as tolerated Discharge Diet: General/regular food, Other - Educated on gout diet, keep well hydrated
[2017-02-26] MEDS: INDOMETHACIN 25 MG CAPSULE PO SCH (09:08)
[2017-02-26] MEDS: ASPIRIN 325 MG TABLET.DR PO SCH (09:08)
[2017-02-26] MEDS: SIMVASTATIN 20 MG TABLET PO SCH (09:09)
[2017-02-26] MEDS: CHOLECALCIFEROL 1,000 UNIT CAPSULE PO SCH (09:09)
[2017-02-26] MEDS: LISINOPRIL 40 MG TABLET PO SCH (09:09)
[2017-02-26] MEDS: CEFDINIR 300 MG CAPSULE PO SCH (09:09)
[2017-02-26 11:25] VITALS: BP 134/88
== END 2017-02-26 13:00 | disposition home or self-care (01) | DRG 549 ==
LOC: ER 11:35 → MS 14:15 → OBSVTOIN 02-24 17:05
PROVIDERS: ADMIT Family Medicine; ATTEND Family Medicine
DX: M00.9 Pyogenic arthritis, unspecified (principal); L03.113 Cellulitis of right upper limb; M10.9 Gout, unspecified; I10 Essential (primary) hypertension; E78.5 Hyperlipidemia, unspecified; Z79.82 Long term (current) use of aspirin
CPT/HCPCS: 36415; 72125; 73110; 73223; 80048; 80053; 81001; 83605; 84145; 84550; 85025; 86140; 87086; 93005; 96365; 96375; 99284; G0378

== ENCOUNTER 2017-03-23 09:02 | Day surgery (SDC) | payer MEDICARE ==
[2017-03-23] MEDS ORDERED: RINGER'S SOLUTION,LACTATED 1,000 ML IV PRN ×2 (09:23→12:53)
[2017-03-23] MEDS ORDERED: PANTOPRAZOLE SODIUM 40 MG in NORMAL SALINE 100 ML IV ONE (14:00)
[2017-03-23] MEDS ORDERED: PANTOPRAZOLE SODIUM 40 MG/100 ML PIGGYBACK IV ONE (14:04)
[2017-03-23 14:49] VITALS: BP 130/76
--- NOTE | 2017-03-23 18:41 | OR ---
Operative Report - Dictated Report Narrative: Operative Report Date of operation: 03/23/2017 Preoperative diagnosis: Dysphagia Postoperative diagnosis: GE junction narrowing with large hiatal hernia ( CLOtest pending) Operation: EGD with gastric biopsy and balloon dilation of the GE junction to 20 mm Surgeon: Dr Cat Anesthesia: TOD CLAIRE CRNA Indications for procedure: The patient is a 72-year-old female with a two- month history of increasing dysphagia for both solids and liquids. Findings: Narrowing and inflammation at the GE junction with a very large sliding hiatal hernia. Relatively normal appearing stomach and duodenum ( CLOtest pending) Narrative of procedure: The patient was identified preoperatively, and prior to the administration of anesthetic a multidisciplinary timeout was observed With the patient in the recumbent position, a bite-block was placed, intravenous sedation administered, and the patient's eyes covered with a towel. The flexible fiberoptic gastroscope was advanced into the posterior pharynx which appeared normal. The supraglottic larynx appeared normal. The cords appeared normal, moved well, and opposed in the midline. The scope was advanced under direct vision into the proximal esophagus which appeared normal. The esophagus appeared freely distensible with normal mucosa. There was a large amount of saliva in the esophagus. The esophageal mucosa appeared normal down to the gastroesophageal junction which was angulated, narrowed, and mildly inflamed. There was a very large sliding hiatal hernia. The scope was advanced through this into the stomach proper which was insufflated with air. The gastric mucosa appeared grossly normal with no evidence of ulceration or neoplastic-appearing lesions. A retroflexed view of the gastric fundus revealed no additional lesions and clearly demonstrated the large hiatal hernia. The gastric side of the GE junction appeared mildly inflamed. The scope was redirected toward the pylorus. The pylorus appeared patent. The scope was advanced into the duodenal bulb which appeared normal. The scope was advanced further to the horizontal portion of the duodenum which appeared normal , specifically the villous architecture appeared well preserved and clear bile was present. The scope was slowly withdrawn through the duodenal bulb with confirmation that no active ulcer was present. The scope was withdrawn into the stomach and a fraud representative biopsy of gastric mucosa obtained for CLOtest. The biopsy site was seen to be hemostatic. A balloon dilator was then deployed in the stomach and withdrawn to lie across the GE junction, which was dilated in stages to 20 mm. The balloon then was seen to pass freely through the GE junction. There was some initial bleeding, however this was seen to have stopped by the conclusion of the procedure. The scope was readvanced into the stomach. Insufflated air was removed from the stomach and the scope was slowly withdrawn through the hiatal hernia and GE junction with confirmation of hemostasis and a widely patent GE junction. The scope was then withdrawn from the patient, and the procedure terminated. The patient tolerated the anesthetic and procedure well without complication and was transferred back to the ambulatory surgery area awake and in stable condition. The patient remained stable throughout a period of postoperative observation, was able to tolerate po intake, and was up without assistance. I shared the operative findings with her and her , and she was given copies of the photographs which appear in the medical record. She was given a single dose of Protonix 40 mg IV prior to discharge. She was discharged home with instructions not to engage in hazardous activity today, but may return to normal activity tomorrow and advance diet as tolerated. She is to continue medications as listed in the history and physical exam. I made arrangements to contact the patient with the biopsy reports and will make further recommendation based upon that result. Reviewed and is electronically signed
== END 2017-03-23 09:03 | disposition home or self-care (01) ==
LOC: AMB 09:02
PROVIDERS: ATTEND Surgery
PROC: 0D748ZZ Dilation of Esophagogastric Junction, Via Natural or Artificial Opening Endoscopic (ICD-10-PCS; 2017-03-23)
PROC: 0DB68ZX Excision of Stomach, Via Natural or Artificial Opening Endoscopic, Diagnostic (ICD-10-PCS; principal; 2017-03-23 11:30)
DX: K22.2 Esophageal obstruction (principal); K44.9 Diaphragmatic hernia without obstruction or gangrene; I10 Essential (primary) hypertension; E78.5 Hyperlipidemia, unspecified; M81.0 Age-related osteoporosis without current pathological fracture; Z68.22 Body mass index [BMI] 22.0-22.9, adult

== ENCOUNTER 2017-04-20 08:50 | Day surgery (SDC) | payer MEDICARE ==
[~2017-04-20 08:50] MED LIST: RINGER'S SOLUTION,LACTATED 1,000 ML IV PRN; ceFAZolin SODIUM 1 GM VIAL IV PRN
[2017-04-20] MEDS ORDERED: RINGER'S SOLUTION,LACTATED 1,000 ML IV ONE (10:25)
--- NOTE | 2017-04-20 13:55 | OR ---
Anesthesia Procedure Note - Anesthesia Procedure Note Narrative: Vital Signs - Last Taken Temp 37.0 C 04/20/17 13:31 Pulse 97 04/20/17 13:35 Resp 16 04/20/17 13:35 BP 110/64 04/20/17 13:35 Pulse Ox 95 04/20/17 13:35 O2 Oxygen Delivery Method Room Air 04/20/17 13:49 ANESTHESIA PROCEDURE NOTE Date of procedure: 04/20/2017. Time of procedure: . Performed by: Segundo Mora CRNA Sql Tech: Heather Ba RN . Preprocedure diagnosis: Arthritic right wrist. Need for postoperative analgesia.. Post procedure diagnosis: Same. Procedure: Right axillary nerve block. Indications: Postoperative analgesia for right wrist fusion.. Findings: Patient brought to operating room #2 and placed in the supine position. Patient was sedated. Right axilla was prepped with ChloraPrep. Ultrasound used to identify right axillary artery. A 22-gauge 2 inch Stimuplex regional block needle was advanced under ultrasound guidance. Nerve stimulator was also utilized to confirm needle placement. A total of 30 mL of 0.5% Marcaine with epinephrine 1 at 20,000 was deposited around the right axillary artery. Radial, ulnar, and medial nerves were identified and local anesthetic was placed around the nerves. Regional block needle was removed intact. EBL: Minimal. Fluids: N/A. Specimen: N/A. Post procedure condition: The patient tolerated the procedure well. No complications were noted. Thank you for this consultation Segundo Mora CRNA
[2017-04-20 14:51] VITALS: BP 121/76
== END 2017-04-20 08:51 | disposition home or self-care (01) ==
LOC: AMB 08:50
PROVIDERS: ATTEND Orthopaedic Surgery
PROC: 0RGN04Z Fusion of Right Wrist Joint with Internal Fixation Device, Open Approach (ICD-10-PCS; 2017-04-20)
PROC: 3E0T3BZ Introduction of Anesthetic Agent into Peripheral Nerves and Plexi, Percutaneous Approach (ICD-10-PCS; 2017-04-20)
PROC: 0RGN07Z Fusion of Right Wrist Joint with Autologous Tissue Substitute, Open Approach (ICD-10-PCS; principal; 2017-04-20 11:20)
DX: M19.031 Primary osteoarthritis, right wrist (principal); I10 Essential (primary) hypertension; E78.5 Hyperlipidemia, unspecified; M81.0 Age-related osteoporosis without current pathological fracture; K21.9 Gastro-esophageal reflux disease without esophagitis; Z68.39 Body mass index [BMI] 39.0-39.9, adult

== ENCOUNTER 2018-11-03 14:13 | Observation (INO) ==
[2018-11-03 15:05] LABS: Hematocrit 37.6 % (37.0-47.0); Hemoglobin 12.4 gm/dL (12.5-16.0); Mean Cell Volume 92.6 fl (78-100); Mean Corpuscular Hemoglobin 30.5 pg (27-31); Neutrophil # 19.1 K/mm3 (1.3-6.0); Neutrophil % 87.9 % (42-75.0); Platelet Count 221 K/mm3 (150-450); Red Blood Count 4.06 M/mm3 (4.2-5.4); Red Cell Distribution Width 14.1 % (11.5-14.0); White Blood Count 21.7 K/mm3 (4.0-10.5)
[2018-11-03 16:20] LABS: Albumin * 3.3 gm/dl (3.4-5.0); Anion Gap 13.4 mmol/L (6.8-13.8); BUN/Creatinine Ratio 13.3 (9.0-21.6); Bilirubin, Total 1.1 mg/dL (0.0-1.1); Ca. Corrected For Albumin 8.6 mg/dL (8.4-10.2); Calcium * 8.4 mg/dL (7.9-10.9); Potassium 3.4 mmol/L (3.4-4.6); Total Protein 7.3 gm/dL (6.2-8.2)
--- NOTE | 2018-11-03 18:22 | ERNOTE ---
Medical Problem HPI - Narrative Date of Service: 11/03/18 - General Chief Complaint: General Assessment Time Seen by Provider: 11/03/18 14:36 Source: patient, family Exam Limitations: no limitations - Immun/Allergies/Home Medications Immunizations: IMMUNIZATION HX Immunizations Up to Date Yes History of Influenza Vaccine Yes Hx Pneumococcal Vaccination Yes Allergies/Adverse Reactions: Allergies No Known Allergies Allergy (Verified 03/23/17 09:28) Home Medications: HOME MEDICATIONS Aspirin [Aspirin Enteric Coated] 81 mg PO DAILY 03/23/17 [Last Taken 04/19/17] Cholecalciferol (Vitamin D3) [Vitamin D3] 1,000 unit PO DAILY 03/23/17 [Last Taken 04/19/17] Pantoprazole Sodium [Protonix] 40 mg PO BID 03/23/17 [Last Taken 04/19/17] Alendronate Sodium 10 mg PO DAILY 11/03/18 [Last Taken Unknown] Atorvastatin Calcium [Lipitor] 80 mg PO HS 11/03/18 [Last Taken Unknown] Cyclobenzaprine HCl 10 mg PO PRN PRN 11/03/18 [Last Taken Unknown] Ezetimibe [Zetia] 10 mg PO HS 11/03/18 [Last Taken Unknown] Furosemide [Lasix] 40 mg PO DAILY 11/03/18 [Last Taken Unknown] Losartan Potassium [Cozaar] 50 mg PO DAILY 11/03/18 [Last Taken Unknown] Metoprolol Tartrate 100 mg PO BID 11/03/18 [Last Taken Unknown] Potassium Chloride [Klor-Con 10] 30 meq PO BID 11/03/18 [Last Taken Unknown] - History of Present History Narrative: patient c/o right chest pain onset yesterday Timing: constant Severity: moderate Modifying Factors - (Improves): Present: other - nothing Modifying Factors - (Worsens): Present: movement, other - deep breaths Review of Systems - Review of Systems Constitutional: Present: See HPI, weakness, fatigue, malaise EYE: Present: no symptoms reported ENT: Present: no symptoms reported Respiratory: Present: See HPI, shortness of breath, cough, orthopnea Cardiology: Present: no symptoms reported Gastrointestinal/Abdominal: Present: no symptoms reported Genitourinary: Present: no symptoms reported Musculoskeletal: Present: no symptoms reported Skin: Present: no symptoms reported Neurological: Present: no symptoms reported Endocrine: Present: no symptoms reported Hematologic/Lymphatic: Present: no symptoms reported Psych: Present: no symptoms reported All Other Systems: All systems neg except as marked Social History: Preferred Language New Zealander Do you have any confucianism or No cultural preference? Smoking Status Never smoker Abuse History No History of abuse Psych History No pertinent hx Alcohol Use rarely Drug Use none No Social History Section defined Physical Exam - Physical Exam General Appearance: Present: moderate distress, anxious Head Exam: Present: normal inspection, no evidence of injury Eye Exam: Normal inspection: bilateral, PERRL: bilateral, EOMI: bilateral Ears, Nose, Throat: Present: normal ENT inspection, normal pharynx Neck: Present: normal inspection, nontender Respiratory: Present: chest tenderness, decreased breath sounds, rales, rhonchi, wheezing Cardiovascular/Chest: Present: regular rate, rhythm, no murmur, normal peripheral pulses Gastrointestinal/Abdominal: Present: normal bowel sounds, nontender, nondistended, soft, no organomegaly Back Exam: Present: normal inspection, normal range of motion, no CVA tenderness, no vertebral tenderness Extremity Exam: Present: normal inspection, non-tender, normal range of motion, no edema Neurological Exam: Present: alert, oriented, normal mood/affect, no motor/sensory deficits Skin Exam: Present: normal color, warm/dry Lymphatic Exam: Present: no adenopathy Progress - Date and Time Seen: Date and Time: 11/03/18 18:56 patient unchanged, discussed results with dr morgan accepted for admissiion - Results and Orders Patient's Lab Results:: I have reviewed the patient's lab results. - Vital Signs Patient's Vital Signs:: I have reviewed the patient's vital signs. Vital Signs: Vital Signs 11/03/18 14:14 11/03/18 17:26 Temperature 36.7 C Pulse Rate 109 H 99 Respiratory Rate 18 24 H Blood Pressure 123/66 111/57 O2 Sat by Pulse Oximetry 97 94 - EKG EKG #1 EKG: NSR - X-Ray X-Ray #1 X-Ray: chest Interpretation: Discd w/ radiologist - difuse densities bilaterally - CT/Ultrasound CT/Ultrasound Narrative: diffuse densities in bilateral lungs, no pe - Progress/Reassessment Chief Complaint: General Assessment Progress:: Unchanged - Transfer of Care Expected Disposition: Admit Plan - Plan Plan: to admit to hospital Departure Clinical Impression: Pneumonia - Departure Disposition: Still a patient Condition: Stable Referrals: Yvonne Ballard, [Primary Care Provider] -
[2018-11-03] MEDS ORDERED: DEXTROSE 5 % IN WATER 100 ML BAG IV ONE (19:16)
[2018-11-03] MEDS: NORMAL SALINE 1,000 ML IV PRN (19:26)
[2018-11-03] MEDS: AZITHROMYCIN 500 MG in DEXTROSE 5 % IN WATER 250 ML IV SCH ×2 (20:01)
[2018-11-03] MEDS: ACETAMINOPHEN 325 MG TABLET PO PRN (23:34)
[2018-11-03] MEDS: METOPROLOL TARTRATE 50 MG TABLET PO SCH (23:35)
[2018-11-04] MEDS: NORMAL SALINE 1,000 ML IV PRN ×2 (04:24→13:51)
[2018-11-04] MEDS: ACETAMINOPHEN 325 MG TABLET PO PRN (07:12)
[2018-11-04] MEDS: METOPROLOL TARTRATE 50 MG TABLET PO SCH ×2 (08:31→20:33)
[2018-11-04 08:41] LABS: Hematocrit 30.6 % (37.0-47.0); Hemoglobin 10.2 gm/dL (12.5-16.0); Mean Cell Volume 92.7 fl (78-100); Mean Corpuscular Hemoglobin 30.9 pg (27-31); Mean Corpuscular Hgb Conc 33.3 g/dl (32-36); Mean Platelet Volume 9.5 fl (8-12.5); Neutrophil # 10.2 K/mm3 (1.3-6.0); Neutrophil % 77.2 % (42-75.0); Platelet Count 159 K/mm3 (150-450); Red Cell Distribution Width 14.5 % (11.5-14.0); White Blood Count 13.2 K/mm3 (4.0-10.5)
[2018-11-04 08:53] LABS: Albumin * 2.5 gm/dl (3.4-5.0); Anion Gap 12.3 mmol/L (6.8-13.8); BUN/Creatinine Ratio 10.3 (9.0-21.6); Bilirubin, Total 0.4 mg/dL (0.0-1.1); Ca. Corrected For Albumin 8.5 mg/dL (8.4-10.2); Calcium * 7.6 mg/dL (7.9-10.9); Carbon Dioxide 25.5 mmol/L (24-32.6); Potassium 2.8 mmol/L (3.4-4.6); Total Protein 6.2 gm/dL (6.2-8.2)
[2018-11-04] MEDS ORDERED: traMADol HCL 50 MG TABLET PO SCH (09:30)
[2018-11-04] MEDS: LIDOCAINE 1 PATCH ADH..PATCH TP SCH (09:55)
[2018-11-04] MEDS ORDERED: traMADol HCL 50 MG TABLET PO PRN (13:01)
[2018-11-04] MEDS ORDERED: POTASSIUM BICARBONATE/CIT AC 25 MEQ TABLET.EFF PO ONE (14:48)
--- NOTE | 2018-11-04 14:51 | HP ---
Chief Complaint - Chief Complaint Date of Service: 11/04/18 Time of Service: 07:55 Chief Complaint: Chest pain and not feeling well 1 day History of Present Illness: 73-year-old female with a past medical history of congestive heart failure, hypertension, high cholesterol, arthritis, GERD presents with complaints of not feeling well and chest pain for the past 1 day. She states her symptoms began yesterday when she was at home, she had one episode of vomiting and had her neighbor bring her to the emergency room. In the ER chest x-ray showed multiple opacities likely atelectasis but consider multifocal pneumonia infiltrates. Rib x-ray showed potential fractures at the right 11th and 12th rib. CT angios showed scattered bilateral heterogeneous opacities predominantly in the right upper lobe and bilateral lower lobes which may represent infection, recommend follow-up chest CT in 6-8 weeks to ensure resolution and exclude the possibility of an underlying neoplasm. She was admitted for bilateral pneumonia and started on ceftriaxone and azithromycin. She was also found to have worsening of her renal function and an elevated lactic acid. She was started on IV fluid. Medical History (Updated 11/04/18 @ 14:57 by Cely Schrader MD) Acid reflux Arthritis CHF (congestive heart failure) HTN (hypertension) High cholesterol Muscle spasm fallopian tube surgery femur fx with rodding Surgical History: Surgical History (Updated 11/03/18 @ 20:14 by Gisela Townsend RN) History of appendectomy History of cholecystectomy History of hand surgery History of total bilateral knee replacement Family History: Family History (Updated 11/03/18 @ 20:15 by Gisela Townsend RN) Other No pertinent family history Social History: Patient Lives/Resources Home Utilized Occupation retired since 2013 Preferred Language Ghanaian Do you have any gnosticist or No cultural preference? Smoking Status Never smoker Have you smoked in the past 12 No months Abuse History No History of abuse Psych History No pertinent hx Alcohol Use rarely Drug Use none No Social History Section defined Review Of Systems (GEN) - Review of Systems Generalized/Overall Review: Absent: Fever EENTM: Absent: Eye Pain Respiratory: Present: Cough, Shortness of Breath Cardiac: Present: Chest Pain Abdominal: Absent: Nausea, Vomiting, Abdominal Pain Misc: All systems neg except as marked Immunizations: IMMUNIZATION HX Immunizations Up to Date Yes History of Influenza Vaccine Yes Hx Pneumococcal Vaccination Yes Allergies/Adverse Reactions: Allergies Allergy/AdvReac Type Severity Reaction Status Date / Time No Known Allergies Allergy Verified 11/03/18 20:10 Home Medications: HOME MEDICATIONS Aspirin [Aspirin Enteric Coated] 81 mg PO DAILY 03/23/17 [Last Taken 04/19/17] Cholecalciferol (Vitamin D3) [Vitamin D3] 1,000 unit PO DAILY 03/23/17 [Last Taken 04/19/17] Pantoprazole Sodium [Protonix] 40 mg PO BID 03/23/17 [Last Taken 04/19/17] Alendronate Sodium 10 mg PO DAILY 11/03/18 [Last Taken Unknown] Atorvastatin Calcium [Lipitor] 80 mg PO HS 11/03/18 [Last Taken Unknown] Cyclobenzaprine HCl 10 mg PO PRN PRN 11/03/18 [Last Taken Unknown] Ezetimibe [Zetia] 10 mg PO HS 11/03/18 [Last Taken Unknown] Furosemide [Lasix] 40 mg PO DAILY 11/03/18 [Last Taken Unknown] Losartan Potassium [Cozaar] 50 mg PO DAILY 11/03/18 [Last Taken Unknown] Metoprolol Tartrate 100 mg PO BID 11/03/18 [Last Taken Unknown] Potassium Chloride [Klor-Con 10] 30 meq PO BID 11/03/18 [Last Taken Unknown] Exam - Exam Vital Signs: Vital Signs - Last Taken Temp 37.0 C 11/04/18 14:31 Pulse 79 11/04/18 14:31 Resp 18 11/04/18 14:31 BP 105/55 11/04/18 14:31 Pulse Ox 93 11/04/18 14:31 Constitutional: Present: Alert, Cooperative, Well developed, Well nourished, No distress, Elderly Eye Exam: bilateral eye: normal inspection Neck: Present: supple, trachea midline. Absent: lymphadenopathy (R), lymphadenopathy (L) Back Exam: Present: normal inspection Respiratory: Present: lungs clear, no respiratory distress, no accessory muscle use. Absent: crackles, rhonchi, wheezing Cardiovascular/Chest: Present: normal peripheral pulses, regular rate, rhythm, no edema, no murmur, chest tender - Right lower, lateral chest wall, tender to palpation Peripheral Pulses: dorsalis-pedis (R): 1+, dorsalis-pedis (L): 1+ Abdomen: Present: Normal bowel sounds, soft, nontender Extremity: Present: non-tender, no pedal edema Skin Exam: Present: normal color, warm/dry Neurologic: Present: alert, normal mood/affect Appearance: Present: appropriate appearance, appropriate insight Eye contact: Present: cooperative, good eye contact Thoughts: Present: normal thought pattern Diagnostic Studies: Abnormal Lab Results 11/03/18 11/03/18 11/03/18 Range/Units 14:55 14:55 15:02 WBC 21.7 H (4.0-10.5) K/mm3 RBC 4.06 L (4.2-5.4) M/mm3 Hgb 12.4 L (12.5-16.0) gm/dL Hct (37.0-47.0) % RDW 14.1 H (11.5-14.0) % Immature Gran % (Auto) 0.60 H (0.001-0.429) % Immature Gran # (Auto) 0.14 H (0.000-0.0310) K/mm3 Neutrophils % 87.9 H (42-75.0) % Lymphocytes % 5.0 L (20-51) % Neutrophils # 19.1 H (1.3-6.0) K/mm3 Lymphocytes # 1.08 L (1.5-3.5) k/mm3 Monocytes # 1.4 H (0.0-1.0) k/mm3 D-Dimer (0.19-0.49) ug/mL pCO2 (32.0-45.0) mmHg pO2 (83.0-108.0) mmHg ABG pH (7.35-7.45) ABG O2 Sat (Measured) (94.0-98.0) % Plasma Sodium (130-142) mmol/L Potassium (3.4-4.6) mmol/L Chloride (97-106) mmol/L Est GFR (Non-Af Amer) 47 L D (60-130) mL/min Random Glucose 172 H (70-110) mg/dL Lactic Acid, Venous (0.4-2.0) mmol/L Calcium (7.9-10.9) mg/dL AST 127 H (0-48) U/L ALT 201 H (19-67) U/L C-Reactive Prot, Quant 5.1 H (0.0-0.9) mg/dL B-Natriuretic Peptide 564 H (5-325) pg/mL Albumin 3.3 L (3.4-5.0) gm/dl Procalcitonin (0.05-0.50) ng/mL 11/03/18 11/03/18 11/03/18 Range/Units 15:02 15:02 15:02 WBC (4.0-10.5) K/mm3 RBC (4.2-5.4) M/mm3 Hgb (12.5-16.0) gm/dL Hct (37.0-47.0) % RDW (11.5-14.0) % Immature Gran % (Auto) (0.001-0.429) % Immature Gran # (Auto) (0.000-0.0310) K/mm3 Neutrophils % (42-75.0) % Lymphocytes % (20-51) % Neutrophils # (1.3-6.0) K/mm3 Lymphocytes # (1.5-3.5) k/mm3 Monocytes # (0.0-1.0) k/mm3 D-Dimer 1.20 H (0.19-0.49) ug/mL pCO2 (32.0-45.0) mmHg pO2 (83.0-108.0) mmHg ABG pH (7.35-7.45) ABG O2 Sat (Measured) (94.0-98.0) % Plasma Sodium (130-142) mmol/L Potassium (3.4-4.6) mmol/L Chloride (97-106) mmol/L Est GFR (Non-Af Amer) (60-130) mL/min Random Glucose (70-110) mg/dL Lactic Acid, Venous 3.2 H* (0.4-2.0) mmol/L Calcium (7.9-10.9) mg/dL AST (0-48) U/L ALT (19-67) U/L C-Reactive Prot, Quant (0.0-0.9) mg/dL B-Natriuretic Peptide (5-325) pg/mL Albumin (3.4-5.0) gm/dl Procalcitonin 0.74 H (0.05-0.50) ng/mL 11/03/18 11/04/18 11/04/18 Range/Units 16:30 08:34 08:34 WBC 13.2 H D (4.0-10.5) K/mm3 RBC 3.30 L (4.2-5.4) M/mm3 Hgb 10.2 L (12.5-16.0) gm/dL Hct 30.6 L (37.0-47.0) % RDW 14.5 H (11.5-14.0) % Immature Gran % (Auto) (0.001-0.429) % Immature Gran # (Auto) 0.05 H (0.000-0.0310) K/mm3 Neutrophils % 77.2 H (42-75.0) % Lymphocytes % 14.2 L (20-51) % Neutrophils # 10.2 H (1.3-6.0) K/mm3 Lymphocytes # (1.5-3.5) k/mm3 Monocytes # (0.0-1.0) k/mm3 D-Dimer (0.19-0.49) ug/mL pCO2 29.3 L (32.0-45.0) mmHg pO2 60.9 L (83.0-108.0) mmHg ABG pH 7.48 H (7.35-7.45) ABG O2 Sat (Measured) 93.3 L (94.0-98.0) % Plasma Sodium 143 H (130-142) mmol/L Potassium 2.8 L (3.4-4.6) mmol/L Chloride 107 H (97-106) mmol/L Est GFR (Non-Af Amer) 54 L (60-130) mL/min Random Glucose 178 H (70-110) mg/dL Lactic Acid, Venous (0.4-2.0) mmol/L Calcium 7.6 L (7.9-10.9) mg/dL AST 65 H (0-48) U/L ALT 131 H (19-67) U/L C-Reactive Prot, Quant (0.0-0.9) mg/dL B-Natriuretic Peptide (5-325) pg/mL Albumin 2.5 L (3.4-5.0) gm/dl Procalcitonin (0.05-0.50) ng/mL Laboratory Results WBC 13.2 K/mm3 (4.0-10.5) H D 11/04/18 08:34 RBC 3.30 M/mm3 (4.2-5.4) L 04/13/19 08:34 Hgb 10.2 gm/dL (12.5-16.0) L 11/04/18 08:34 Hct 30.6 % (37.0-47.0) L 11/04/18 08:34 MCV 92.7 fl (78-100) 11/04/18 08:34 MCH 30.9 pg (27-31) 11/04/18 08:34 MCHC 33.3 g/dl (32-36) 11/04/18 08:34 RDW 14.5 % (11.5-14.0) H 11/04/18 08:34 Plt Count 159 K/mm3 (150-450) 11/04/18 08:34 MPV 9.5 fl (8-12.5) 11/04/18 08:34 Immature Gran % (Auto) 0.40 % (0.001-0.429) 11/04/18 08:34 Immature Gran # (Auto) 0.05 K/mm3 (0.000-0.0310) H 11/04/18 08:34 77.2 % (42-75.0) H 11/04/18 08:34 14.2 % (20-51) L 11/04/18 08:34 6.9 % (0.0-9) 11/04/18 08:34 1.1 % (0.0-3.0) 11/04/18 08:34 0.2 % (0.0-1.0) 11/04/18 08:34 Nucleated RBC % 0.0 k/mm3 (0-1) 11/04/18 08:34 10.2 K/mm3 (1.3-6.0) H 11/04/18 08:34 1.87 k/mm3 (1.5-3.5) 11/04/18 08:34 0.9 k/mm3 (0.0-1.0) 11/04/18 08:34 0.1 k/mm3 (0.0-0.7) 11/04/18 08:34 Absolute Basophils 0.0 k/mm3 (0.0-0.1) 11/04/18 08:34 1.20 ug/mL (0.19-0.49) H 11/03/18 15:02 pCO2 29.3 mmHg (32.0-45.0) L 11/03/18 16:30 pO2 60.9 mmHg (83.0-108.0) L 11/03/18 16:30 HCO3 21.4 mmol/L (21.0-28.0) 11/03/18 16:30 Total CO2 22.3 mmol/L (19.0-24.0) 11/03/18 16:30 Base Excess -1.1 mmol/L (-2.0-3.0) 11/03/18 16:30 ABG pH 7.48 (7.35-7.45) H 11/03/18 16:30 ABG O2 Sat (Measured) 93.3 % (94.0-98.0) L 11/03/18 16:30 Sodium 142 mmol/L (132-142) 11/04/18 08:34 143 mmol/L (130-142) H 11/04/18 08:34 Potassium 2.8 mmol/L (3.4-4.6) L 11/04/18 08:34 Chloride 107 mmol/L (97-106) H 11/04/18 08:34 Carbon Dioxide 25.5 mmol/L (24-32.6) 11/04/18 08:34 12.3 mmol/L (6.8-13.8) 11/04/18 08:34 BUN 11 mg/dL (3-23) 11/04/18 08:34 1.07 mg/dL (0.4-1.4) 11/04/18 08:34 Est GFR (Non-Af Amer) 54 mL/min (60-130) L 11/04/18 08:34 10.3 (9.0-21.6) 11/04/18 08:34 178 mg/dL (70-110) H 11/04/18 08:34 1.7 mmol/L (0.4-2.0) 11/03/18 19:30 Calcium 7.6 mg/dL (7.9-10.9) L 11/04/18 08:34 Calcium Adj for Albumin 8.5 mg/dL (8.4-10.2) 11/04/18 08:34 0.4 mg/dL (0.0-1.1) 11/04/18 08:34 AST 65 U/L (0-48) H 11/04/18 08:34 ALT 131 U/L (19-67) H 11/04/18 08:34 105 U/L (50-170) 11/04/18 08:34 C-Reactive Prot, Quant 5.1 mg/dL (0.0-0.9) H 11/03/18 15:02 B-Natriuretic Peptide 564 pg/mL (5-325) H 11/03/18 14:55 6.2 gm/dL (6.2-8.2) 11/04/18 08:34 2.5 gm/dl (3.4-5.0) L 11/04/18 08:34 0.74 ng/mL (0.05-0.50) H 11/03/18 15:02 Assessment/Plan - Narrative Narrative: 73-year-old female with a past medical history of congestive heart failure, hypertension, high cholesterol, arthritis, GERD presents with complaints of not feeling well and chest pain for the past 1 day. She was admitted for bilateral pneumonia and started on ceftriaxone and azithromycin. She was also found to have worsening of her renal function and an elevated lactic acid. She was started on IV fluid. She also had right 11 and 12 rib fractures. - Assessment/Plan (1) Pneumonia Assessment: Continue with azithromycin and ceftriaxone. Problem: Acute (2) Right rib fracture Assessment: She denies any trauma, possibly secondary to cough. Continue with pain management with tramadol. She states her pain is an 8 out of 10 in the Tylenol did not work for her. I do not want to give her NSAIDs due to her abnormal renal function. Problem: Acute Qualifiers: Encounter type: initial encounter Rib fracture type: multiple ribs (3) Hypokalemia Problem: Acute
--- NOTE | 2018-11-04 14:52 | DS ---
Description of Stay: 73-year-old female with a past medical history of congestive heart failure, hypertension, high cholesterol, arthritis, GERD presents with complaints of not feeling well and chest pain for the past 1 day. She states her symptoms began yesterday when she was at home, she had one episode of vomiting and had her neighbor bring her to the emergency room. In the ER chest x-ray showed multiple opacities likely atelectasis but consider multifocal pneumonia infiltrates. Rib x-ray showed potential fractures at the right 11th and 12th rib. CT angios showed scattered bilateral heterogeneous opacities predominantly in the right upper lobe and bilateral lower lobes which may represent infection, recommend follow-up chest CT in 6-8 weeks to ensure resolution and exclude the possibility of an underlying neoplasm. She was admitted for bilateral pneumonia and started on ceftriaxone and azithromycin. She was also found to have worsening of her renal function and an elevated lactic acid. She was started on IV fluid. She had good response to the IV fluid hydration. Renal function improved, she had some hypokalemia that was repleted orally. The patient was supposed to be discharged on November 04, 2018 but her rib pain was not well controlled. With tramadol. I started Percocet 5325 mg with good relief of her symptoms. Today her pain is very well controlled and she is ready to go home. Her vitals stabilized are stable and she is not hypoxic. She will be discharged home on oral antibiotics. Procedures Performed: none Results and Findings: Lab Pending Results 11/03/18 14:55: WBC 21.7 H, RBC 4.06 L, Hgb 12.4 L, Hct 37.6, MCV 92.6, MCH 30.5, MCHC 33.0, RDW 14.1 H, Plt Count 221, MPV 10.0, Immature Gran % (Auto) 0.60 H, Immature Gran # (Auto) 0.14 H, Neutrophils % 87.9 H, Lymphocytes % 5.0 L, Monocytes % 6.3, Eosinophils % 0.0, Basophils % 0.2, Nucleated RBC % 0.0, Neutrophils # 19.1 H, Lymphocytes # 1.08 L, Monocytes # 1.4 H, Eosinophils # 0.0, Absolute Basophils 0.1 11/03/18 14:55: Sodium 137, Plasma Sodium 138, Potassium 3.4, Chloride 101, Carbon Dioxide 26.0, Anion Gap 13.4, BUN 16, Creatinine 1.20, Est GFR (Non-Af Amer) 47 L D, BUN/Creatinine Ratio 13.3, Random Glucose 172 H, Calcium 8.4, Calcium Adj for Albumin 8.6, Total Bilirubin 1.1, AST 127 H, ALT 201 H, Alkaline Phosphatase 140, B-Natriuretic Peptide 564 H, Total Protein 7.3, Albumin 3.3 L 11/03/18 15:02: C-Reactive Prot, Quant 5.1 H 11/03/18 15:02: Procalcitonin 0.74 H 11/03/18 15:02: Lactic Acid, Venous 3.2 H* 11/03/18 15:02: D-Dimer 1.20 H 11/03/18 16:30: pCO2 29.3 L, pO2 60.9 L, HCO3 21.4, Total CO2 22.3, Base Excess -1.1, ABG pH 7.48 H, ABG O2 Sat (Measured) 93.3 L 11/03/18 19:30: Lactic Acid, Venous 1.7 11/04/18 08:34: WBC 13.2 H D, RBC 3.30 L, Hgb 10.2 L, Hct 30.6 L, MCV 92.7, MCH 30.9, MCHC 33.3, RDW 14.5 H, Plt Count 159, MPV 9.5, Immature Gran % (Auto) 0.40, Immature Gran # (Auto) 0.05 H, Neutrophils % 77.2 H, Lymphocytes % 14.2 L, Monocytes % 6.9, Eosinophils % 1.1, Basophils % 0.2, Nucleated RBC % 0.0, Neutrophils # 10.2 H, Lymphocytes # 1.87, Monocytes # 0.9, Eosinophils # 0.1, Absolute Basophils 0.0 11/04/18 08:34: Sodium 142, Plasma Sodium 143 H, Potassium 2.8 L, Chloride 107 H, Carbon Dioxide 25.5, Anion Gap 12.3, BUN 11, Creatinine 1.07, Est GFR (Non-Af Amer) 54 L, BUN/Creatinine Ratio 10.3, Random Glucose 178 H, Calcium 7.6 L, Calcium Adj for Albumin 8.5, Total Bilirubin 0.4, AST 65 H, ALT 131 H, Alkaline Phosphatase 105, Total Protein 6.2, Albumin 2.5 L Discharge Location: Home Disposition: Home self-care Condition: Stable Discharge Activity: Activity as tolerated Discharge Diet: Low salt Referrals: Yvonne Ballard DO [Primary Care Provider] - Problem Oriented Discharge Instructions to Patient/Family: Rib Fracture, [id number], Community-Acquired Pneumonia, Adult, [id number] Additional Patient Instructions (free text): - [facility] will call you on Tuesday with Yvonne Ballard follow up appointment. Prescriptions (Any new or edited meds): Azithromycin 250 mg PO DAILY #4 tab Cefdinir [Omnicef] 300 mg PO Q12H #12 cap oxyCODONE HCL/ACETAMINOPHEN [Percocet 5 MG/325 MG] 1 tab PO BID PRN 5 Days #10 tab PRN Reason: Severe Pain (Pain Scale 7-10) Complete Home Medications List: Complete Home Medication List: Aspirin [Aspirin Enteric Coated] 81 mg PO DAILY 03/23/17 Cholecalciferol (Vitamin D3) [Vitamin D3] 1,000 unit PO DAILY 03/23/17 Pantoprazole Sodium [Protonix] 40 mg PO BID 03/23/17 Alendronate Sodium 10 mg PO DAILY 11/03/18 Atorvastatin Calcium [Lipitor] 80 mg PO HS 11/03/18 Cyclobenzaprine HCl 10 mg PO PRN PRN 11/03/18 Ezetimibe [Zetia] 10 mg PO HS 11/03/18 Furosemide [Lasix] 40 mg PO DAILY 11/03/18 Losartan Potassium [Cozaar] 50 mg PO DAILY 11/03/18 Metoprolol Tartrate 100 mg PO BID 11/03/18 Potassium Chloride [Klor-Con 10] 30 meq PO BID 11/03/18 Azithromycin 250 mg PO DAILY #4 tab 11/04/18 Cefdinir [Omnicef] 300 mg PO Q12H #12 cap 11/04/18 oxyCODONE HCL/ACETAMINOPHEN [Percocet 5 MG/325 MG] 1 tab PO BID PRN 5 Days #10 tab 11/05/18
[2018-11-04] MEDS ORDERED: ONDANSETRON HCL/PF 2 MG/ML VIAL IV PRN (16:32)
--- NOTE | 2018-11-04 16:36 | PN ---
Jackelyn Note - Interim Date: 11/04/18 Time: 16:35 Narrative: 11/04/18 16:35 Patient's pain is not well controlled. She states her pain is an 8 out of 10 with no relief from the lidocaine patch or tramadol. We will try to start her on Percocet to see if this relieves her pain. She has also started vomiting so we will keep her in the hospital for 1 more night.
[2018-11-04] MEDS: oxyCODONE HCL/ACETAMINOPHEN 1 TAB TABLET PO PRN ×2 (17:45→23:06)
[2018-11-04] MEDS: AZITHROMYCIN 500 MG in DEXTROSE 5 % IN WATER 250 ML IV SCH ×2 (20:29)
[2018-11-04] MEDS ORDERED: REMOVE PATCH 1 PATCH PATCH TP SCH (21:00)
[2018-11-05] MEDS: NORMAL SALINE 1,000 ML IV PRN (00:21)
[2018-11-05] MEDS: ACETAMINOPHEN 325 MG TABLET PO PRN ×2 (04:44→11:57)
[2018-11-05 06:34] LABS: Hematocrit 29.5 % (37.0-47.0); Hemoglobin 9.4 gm/dL (12.5-16.0); Mean Cell Volume 95.5 fl (78-100); Mean Corpuscular Hemoglobin 30.4 pg (27-31); Mean Corpuscular Hgb Conc 31.9 g/dl (32-36); Neutrophil # 5.5 K/mm3 (1.3-6.0); Neutrophil % 64.9 % (42-75.0); Platelet Count 149 K/mm3 (150-450); Red Blood Count 3.09 M/mm3 (4.2-5.4); Red Cell Distribution Width 14.9 % (11.5-14.0); White Blood Count 8.4 K/mm3 (4.0-10.5)
[2018-11-05 06:45] LABS: Albumin * 2.1 gm/dl (3.4-5.0); BUN/Creatinine Ratio 7.5 (9.0-21.6); Bilirubin, Total 0.4 mg/dL (0.0-1.1); Ca. Corrected For Albumin 8.1 mg/dL (8.4-10.2); Calcium * 6.9 mg/dL (7.9-10.9); Carbon Dioxide 26.4 mmol/L (24-32.6); Potassium 3.4 mmol/L (3.4-4.6); Total Protein 5.3 gm/dL (6.2-8.2)
[2018-11-05] MEDS: METOPROLOL TARTRATE 50 MG TABLET PO SCH (08:21)
[2018-11-05] MEDS: LIDOCAINE 1 PATCH ADH..PATCH TP SCH (09:49)
[2018-11-05 12:48] VITALS: BP 106/55
== END 2018-11-05 12:11 | disposition home or self-care (01) ==
LOC: ER 14:13 → INTOOBSV 18:55 → MS 18:55
PROVIDERS: ADMIT Internal Medicine; ATTEND Internal Medicine
CPT/HCPCS: 36415; 36600; 71020; 71046; 71100; 71275; 80053; 82803; 83519; 83605; 83880; 84145; 85025; 85379; 86140; 87040; 93005; 94760; 96361; 96365; 96366; 96372; 99285; G0378; J2405; Q9967